=== PATIENT | female | born 1995 | race Caucasian/White ===

== ENCOUNTER 2018-10-09 23:52 | Emergency (ER) | payer OTHER, SELFPAY ==
[2018-10-09 23:57] VITALS: BP 141/87; PULSE 89; RESP 18; TEMP 36.7; O2SAT 97
--- NOTE | 2018-10-10 00:44 | ED.GENADUL_ITS ---
Discharge Plan Disposition Patient Disposition: HOME Condition: Stable Discharge Details Chief Complaint: RespSymp Clinical Impression: URI (upper respiratory infection), Bronchitis Primary Care Provider: Chante Cano ED Provider: Radha Jang Home Meds and New Rx's Prescriptions: New prednisone 50 mg tablet 50 mg PO DAILY 5 Days Qty: 5 RF: 0 doxycycline hyclate 100 mg tablet 100 mg PO BID 5 Days Qty: 10 RF: 0 Continued norgestimate-ethinyl estradiol [TriNessa (28)] 1 EACH tablet 1 ea PO DAILY RF: 0 acetaminophen [Mapap Extra Strength] 500 MG tablet 500 mg PO PRN PRNRF: 0 ibuprofen 600 MG tablet 600 mg PO Q6H PRN (Reason: Pain) Qty: 15 RF: 0 bupropion HCl [Wellbutrin] 100 MG tablet 100 mg PO DAILY RF: 0 Discharge Instructions Instructions: Upper Respiratory Infection (ED), Acute Bronchitis (ED) Additional Instructions: Drink plenty of fluids and get plenty of rest. Take Tylenol and Motrin as needed and directed for pain. Use [id number] cough and cold medication to help with cough, nasal congestion. If you have continued wheezing and coughing, start the steroids. If your symptoms do not improve or worsen over the next 2 days after steroids, start the antibiotics. Follow-up with primary care doctor in 1 week for reevaluation as needed. Return immediately to the emergency department any worsening or concerning sym ptoms Stand Alone Forms: Work Release Discharge Data Discharge Physician: Radha Jang Medical Decision Making 23-year-old female who presents with cough with green sputum, chest congestion, intermittent shortness of breath and rib pain with coughing for the past 3 days. Denies known fever, sore throat, ear pain. Vitals within normal limits. Afebrile. Patient appears nontoxic and in no acute distress. She is speaking in full sentences. Minimal sinus tenderness but otherwise normal ENT exam. Lungs clear to auscultation. No submandibular swelling or lymphadenopathy. Differential diagnosis includes URI, viral syndrome, bronchitis, sinusitis. Doubt influenza or pneumonia, has no fevers, normal vital signs, and no complaints of body aches, chills or general fatigue. Patient states she did receive the flu shot this year. She is declining chest x-ray. She is on control, last menstrual period last month and denies chance of . Patient instructed to drink plenty of fluids, plenty of rest, symptomatic treatment with cough and cold medication. She states she had been wheezing but there is no wheezing on my exam. We will send home with a prescription for steroids for persistent cough and wheezing. She was offered an inhaler but declines. Will also send home with a prescription for antibiotics if her symptoms do not improve or worsen over the next few days. She was instructed on the concern for antibiotic resistance and she is encouraged to use symptomatic treatment and steroids first to see if her symptoms improve before starting the antibiotics. She requests a work note. She is instructed to follow-up with primary care doctor for reevaluation and to return here anytime if worse per HPI General Mode of arrival: ambulatory . Date/Time Provider Initiated Documentation: 10/10/18 00:43 . Limitations to Documentation: no limitations . Information obtained by: patient . HPI Narrative: Patient is a 23-year-old female presents with complaint of cough with green sputum, occasional wheezing, chest and rib pain with coughing for the past 3 days. Patient denies any known fever, sore throat, ear pain, vomiting or diarrhea. She states she did receive the flu shot this year. 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 Related Data Home Medications Medication Instructions Recorded Confirmed norgestimate-ethinyl estradiol 1 ea PO DAILY 12/22/13 10/10/18 [TriNessa (28)] acetaminophen [Mapap Extra 500 mg PO PRN PRN 09/26/16 10/10/18 Strength] ibuprofen 600 mg PO Q6H PRN #15 tablet 09/26/16 10/10/18 bupropion HCl [Wellbutrin] 100 mg PO DAILY 02/09/18 10/10/18 doxycycline hyclate 100 mg PO BID 5 Days #10 tab 10/10/18 prednisone 50 mg PO DAILY 5 Days #5 tab 10/10/18 Previous Rx's Medication Instructions Recorded ibuprofen 600 mg PO Q6H PRN #15 tablet 09/26/16 doxycycline hyclate 100 mg PO BID 5 Days #10 tab 10/10/18 prednisone 50 mg PO DAILY 5 Days #5 tab 10/10/18 Allergies Allergy/AdvReac Type Severity Reaction Status Date / Time No Known Allergies Allergy Unverified 02/12/18 15:02 General Stated Complaint: RespSymp MILLICENT: 4 Review of Systems Review of Systems All systems reviewed & are unremarkable except as noted in HPI and below Constitutional Reports as per HPI, Denies chills and Denies fever(s) Eyes Denies blurry vision ENT Denies dizziness, Denies sore throat and Denies throat swelling Cardiovascular Denies chest pain and Reports dyspnea Respiratory Reports cough and Reports dyspnea Gastrointestinal Denies abdominal pain, Denies diarrhea and Denies vomiting Genitourinary Denies hematuria and Denies dysuria Musculoskeletal Denies back pain and Denies numbness Integumentary/Breasts Denies lesions and Denies rash Neurologic Denies dizziness, Denies focal weakness and Denies numbness Allergic/Immunologic Denies throat swelling PFSH Medical History No significant past medical history (Acute) Surgical History No significant past surgical history (Acute) Social History Smoking and Tabacco status: Never alcohol intake: current alcohol intake frequency: a few times a month substance use type: does not use Exam Const General: cooperative, healthy appearing and no acute distress HENMT Head: normal to inspection Ears: hearing grossly normal bilaterally and TM's normal bilaterally General nose exam: external nose normal Face and sinus: normal facial exam and sinus tenderness maxillary (mild bilateral) Mouth: oral mucosae normal Teeth and gingiva: dentition normal Throat: posterior oropharynx normal Eyes General: appearance normal, both eyes and all related structures Pupils: PERRL EOM: EOM intact bilaterally Neck Neck: normal visual inspection and No submandibular swelling Lymphatic: no lymphadenopathy noted Chest Chest: normal inspection of the chest and no tenderness Resp Effort & Inspection: normal respiratory effort and able to speak in complete sentences Auscultation: clear to auscultation bilaterally Cardio Rate: regular rate Rhythm: regular rhythm GI Inspection: normal to inspection Palpation: soft, not firm, not rigid and nontender Auscultation: normal bowel sounds Skin General skin exam: no rashes or lesions noted Neuro General: alert, awake, oriented x3 and no meningeal signs Cognition: normal cognition Speech: speech normal Gait: normal gait Motor: muscle tone normal throughout Sensory Exam: no sensory deficits noted Extrem General: normal to inspection, full ROM, normal capillary refill and no edema Psych Appearance: grossly normal Mental Status: mental status grossly normal Speech and Movement: speech and movement normal Affect: normal affect Course Vital Signs Temperature 98.1 F 10/09/18 23:57 Pulse 89 10/09/18 23:57 Respiratory Rate 18 10/09/18 23:57 Blood Pressure 141/87 H 10/09/18 23:57 Pulse Oximetry 97 10/09/18 23:57 Temperature 98.1 F 10/09/18 23:57 Temperature Source Temporal Artery Scan 10/09/18 23:57 Pulse 89 10/09/18 23:57 Respiratory Rate 18 10/09/18 23:57 Respiratory Effort Non-Labored 10/10/18 00:19 Respiratory Depth Normal 10/10/18 00:19 Blood Pressure 141/87 H 10/09/18 23:57 Pulse Oximetry 97 10/09/18 23:57 Oxygen Delivery Method Room Air 10/09/18 23:57 Oxygen Flow Rate 0 10/09/18 23:57 Pain Level 9 10/09/18 23:57 Comment 10/09/18 23:57
== END 2018-10-10 00:50 | disposition home or self-care (01) ==
LOC: ER 10-10 00:53
PROVIDERS: Emergency Provider Physician Assistant; PCP Physician Assistant Medical
DX: J06.9 Acute upper respiratory infection, unspecified (principal); J20.9 Acute bronchitis, unspecified
CPT/HCPCS: 99283

== ENCOUNTER 2019-04-27 19:58 | Emergency (ER) | payer OTHER, BC, SELFPAY ==
[2019-04-27 20:07] VITALS: BP 128/89; PULSE 89; RESP 16; TEMP 36.4; O2SAT 98
--- NOTE | 2019-04-27 20:16 | W.ED.GENAD ---
Discharge Plan Disposition Patient Disposition: HOME Condition: Good Discharge Details Chief Complaint: Nk/Back Pain Clinical Impression: Lumbago Primary Care Provider: Chante Cano ED Provider: Alban Hernandez Home Meds and New Rx's Prescriptions: New lidocaine [Lidoderm] 1 PATCH patch 1 patch Topical Q24H Qty: 4 RF: 0 Continued norgestimate-ethinyl estradiol [TriNessa (28)] 1 EACH tablet 1 ea PO DAILY RF: 0 acetaminophen [Mapap Extra Strength] 500 MG tablet 500 mg PO PRN PRNRF: 0 ibuprofen 600 MG tablet 600 mg PO Q6H PRN (Reason: Pain) Qty: 15 RF: 0 bupropion HCl [Wellbutrin] 100 MG tablet 100 mg PO DAILY RF: 0 Discharge Instructions Instructions: Low Back Strain (ED) Additional Instructions: At this time you have notably pulled a muscle in your back. There is no evidence clinically of spinal cord compression. Please use Lidoderm patches as directed, please take 1000 mg of Tylenol every 6 hours and 800 mg of ibuprofen every 6 hours. Please avoid any lifting greater than 5 to 10 pounds for the next 2 weeks. Make sure to use a heating pad as often as possible. If you notice any worsening of your symptoms, or any new symptoms such as vomiting, diarrhea, fever, chills, shortness of breath, chest pain, numbness, tingling in your groin, bowel or bladder incontinence, weakness, or fainting , please return immediately to the emergency department for reevaluation. Please follow up with your primary care provider as soon as possible for reassessment and reevaluation. As always, it was a pleasure participating in your medical care today. Stand Alone Forms: Work Release Referrals: Chante Cano PA [Primary Care Provider] - Medical Decision Making This is a 23-year-old female who presents today for evaluation of right lower back pain. 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 Exam demonstrates no clinical evidence of cauda equina syndrome, she is got mild paraspinal tenderness in the lower lumbar region on the right. Normal sensation, normal rectal tone, no bowel or bladder incontinence, normal strength and reflexes. Signs and symptoms are clinically consistent with musculoskeletal strain. Patient does not want any muscle relaxants. Will give work note, recommend heating pad, NSAIDs, Lidoderm patch. Discussed red flags which to return I have extensively reviewed the treatment plan and discharge instructions with the patient. I have addressed all patient concerns at this time. The patient was made aware of what symptoms to monitor for that would warrant a return to the emergency department. Discussed the plan with the patient, they demonstrate verbal understanding and agreement with our assessment and plan at this time. HPI General Date/Time Provider Initiated Documentation: 04/27/19 20:04. HPI Narrative: This is a pleasant 23-year-old male who presents today for evaluation of right lower back pain. She states that she was working at the [facility] facility when she twisted while lifting a patient had some mild to moderate pain in her right lower back. She admits to some burning sensation in that area, she denies any numbness tingling or weakness down the leg. She denies any bowel or bladder incontinence, saddle anesthesia, or other complaints. She has not taken any NSAIDs yet. She denies any fever, chills, IV or illicit drug use, recent falls or trauma. She has no other complaints at this time. She denies any weakness in the lower extremities. Related Data Home Medications Medication Instructions Recorded Confirmed norgestimate-ethinyl estradiol 1 ea PO DAILY 12/22/13 04/27/19 [TriNessa (28)] acetaminophen [Mapap Extra 500 mg PO PRN PRN 09/26/16 04/27/19 Strength] ibuprofen 600 mg PO Q6H PRN #15 tablet 09/26/16 04/27/19 bupropion HCl [Wellbutrin] 100 mg PO DAILY 02/09/18 04/27/19 lidocaine [Lidoderm] 1 patch TOPICAL Q24H #4 patch 04/27/19 Previous Rx's Medication Instructions Recorded ibuprofen 600 mg PO Q6H PRN #15 tablet 09/26/16 lidocaine [Lidoderm] 1 patch TOPICAL Q24H #4 patch 04/27/19 Allergies Allergy/AdvReac Type Severity Reaction Status Date / Time No Known Allergies Allergy Unverified 04/27/19 20:20 General Stated Complaint: Nk/Back Pain MILLICENT: 3 Review of Systems Review of Systems All systems reviewed & are unremarkable except as noted in HPI and below PFSH Social History (Reviewed 10/10/18 @ 02:33 by HOWARD Navarrete Smoking/Tobacco Use Status: Never Alcohol Intake: current Alcohol Intake frequency: a few times a month Drug use: Never Substance use type: does not use Do you feel safe in your relationship?: Yes Exam Narrative Exam Narrative: 1.Const: Well-nourished, Well-developed, appearing stated age 2.Eyes: PERRL, no conjunctival injection, and symmetrical lids. 3.ENT: Atraumatic external nose and ears. Moist MM. Neck: Symmetric, trachea midline, No thyromegaly. 4.CVS: +S1/S2, No murmurs or gallops. Peripheral pulses 2+ and equal in all extremities. Brisk capillary refill in all extremities. 5.RESP: Unlabored respiratory effort. Clear to auscultation bilaterally. No wheezes rales or rhonchi 6.GI: Soft, Nontender/Nondistended, No hepatosplenomegaly. No guarding or rebound. 7.MSK: Normocephalic/Atraumatic, Extremities w/o deformity or ttp No cyanosis or clubbing, Normal movement of all extremities. No midline tenderness to palpation over the CTLS spine. Normal ROM in flexion, extension, side bend, and rotation. Patient has +5 out of 5 strength in the lower extremities in dorsiflexion and plantarflexion, knee flexion and extension, hip flexion and extension. There is +2 over 2 dorsalis pedis pulses bilaterally. There is normal sensation to the skin with light touch at the foot, knee, and hip. Normal saddle sensation. Good sensation over the deep sural nerve area bilaterally. Rectal exam demonstrates good rectal tone and perirectal sensation. Reflexes are +2 over 4 in the patellar reflex bilaterally. +5 out of 5 strength in the medial, ulnar, radial nerve distribution bilaterally in the hands as well as intact light touch sensation to these dermatomes on the hands. Minimal right paraspinal tenderness over L4 and L5. Negative straight leg raise 8.Skin: Warm, Dry. No rashes or lesions. 9.Neuro: lead generation representative II-XII grossly intact. Sensation grossly intact, no focal neurologic deficits. 10.Psych: (AAO) x3. Appropriate mood and affect Course Vital Signs Temperature 36.4 C L 04/27/19 20:07 Pulse 89 04/27/19 20:07 Respiratory Rate 16 04/27/19 20:07 Blood Pressure 128/89 04/27/19 20:07 Pulse Oximetry 98 04/27/19 20:07 Temperature 36.4 C L 04/27/19 20:07 Temperature Source Skin 04/27/19 20:07 Pulse 89 04/27/19 20:07 Respiratory Rate 16 04/27/19 20:07 Blood Pressure 128/89 04/27/19 20:07 Blood Pressure Position Sitting 04/27/19 20:07 Pulse Oximetry 98 04/27/19 20:07 Oxygen Delivery Method Room Air 04/27/19 20:07 Oxygen Flow Rate 0 04/27/19 20:07 Pain Level 9 04/27/19 20:07
[2019-04-27] MEDS: Lidocaine 5% Patch 1 PATCH TP (20:23)
== END 2019-04-27 21:22 | disposition home or self-care (01) ==
PROVIDERS: Emergency Provider Student in an Organized Health Care Education/Training Program; PCP Physician Assistant Medical
DX: S39.012A Strain of muscle, fascia and tendon of lower back, initial encounter (principal); X50.9XXA Other and unspecified overexertion or strenuous movements or postures, initial encounter; Y99.0 Civilian activity done for income or pay
CPT/HCPCS: 99282

== ENCOUNTER 2019-07-03 15:52 | Outpatient (REF) | payer BC, SELFPAY ==
--- NOTE | 2019-07-03 13:00 | PAPFT_PTH ---
PATIENT: Jayne Judge LOC: [facility] U#:[id number] AGE/SX: 24/F ROOM: RE07/03/[address]: Chante Cano : 1995 BED: DIS: 07/03/2019 SPEC #: [id number] RECD: 07/06/19 12:08 STATUS: PEDRO RENetta #: [id number] JAYESH: 07/03/19 13:[address]: Chante Cano DEPT: [facility] Cytology RECD BY: Pebbles Humphreys Tissues: 1 - CX/ENDOCX FOR PAP SMEARS Procedures: PAP THIN PREP/UVM Screening Comments: [id number]
[2019-07-06 12:30] LABS: Chlamydia Result Negative (Negative); GC Result Negative (Negative)
== END 2019-07-03 16:12 ==
LOC: NCHCN 15:52
PROVIDERS: PCP Physician Assistant Medical; Visit Provider Physician Assistant Medical
DX: Z00.00 Encounter for general adult medical examination without abnormal findings (principal); Z11.3 Encounter for screening for infections with a predominantly sexual mode of transmission; Z12.4 Encounter for screening for malignant neoplasm of cervix
CPT/HCPCS: 87491; 87591; 88142

== ENCOUNTER 2020-02-04 13:52 | Outpatient (REF) | payer BC, SELFPAY ==
[2020-02-05 02:15] LABS: COVID-19 RT-PCR UVMMC Result Negative (Negative)
== END 2020-02-04 14:12 ==
LOC: NCHCN 13:52
PROVIDERS: PCP Physician Assistant Medical
DX: Z20.828 Contact with and (suspected) exposure to other viral communicable diseases (principal)
CPT/HCPCS: U0003

== ENCOUNTER 2020-03-03 17:47 | Emergency (ER) | payer BC, SELFPAY ==
[2020-03-03] VITALS (10 sets, daily range): BP systolic 109–139; BP diastolic 68–83; PULSE 80–89; RESP 15–16; TEMP 36.7–37.1; O2SAT 100
--- NOTE | 2020-03-03 18:07 | ED.GENADUL_ITS ---
Discharge Plan Disposition Patient Disposition: HOME Condition: Stable Discharge Details Chief Complaint: Headache Clinical Impression: Headache, migraine Primary Care Provider: Chante Cano ED Provider: Naveed Velazquez Home Meds and New Rx's Prescriptions: Continued lidocaine [Lidoderm] 1 PATCH patch 1 patch Topical Q24H Qty: 4 RF: 0 acetaminophen [Mapap Extra Strength] 500 MG tablet 1,000 mg PO PRN PRNRF: 0 ibuprofen 600 MG tablet 600 mg PO Q6H PRN (Reason: Pain) Qty: 15 RF: 0 bupropion HCl [Wellbutrin] 100 MG tablet 100 mg PO DAILY RF: 0 Discharge Instructions Instructions: Migraine Headache (ED) Additional Instructions: Home to rest and please sleep in a dark, quiet room. Continue to take liberal amounts of fluids so that you maintain hydration. As we discussed, you received a long-acting steroid which should continue to montes ve anti-inflammatory effects. Continue your regular medications. Return if you develop a fever, worsening headache, or any other acute concerns Medical Decision Making 24-year-old female with a history of previous migraine headaches. Now day 3+ of persistent headache for which she was seen at [facility] yesterday and reports a unremarkable CT scan of the head. Now with persistent headache, photophobia, nausea. Her neurologic exam is unremarkable. Her vital signs are within normal limits. Most consistent with migraine type cephalgia. IV access established, patient given fluid bolus and parenteral medications. Following medications, the patient was able to rest quietly. She felt subjectively better. She has less photophobia and is well-appearing on repeat exam. Stable and improving, consistent with migraine headache. Will discharge to home. HPI General Mode of arrival: ambulatory . Date/Time Provider Initiated Documentation: 03/03/20 17:49 . Limitations to Documentation: no limitations . Information obtained by: patient . History of Present Illness 24 year old F presents to the emergency department with the chief complaint of Headache for 3+ days, described as moderate and similar to prior episodes, Quality is described as dull and constant, and is localized to the head. Patient reports no radiation. Patient started experiencing this day(s) and it has been constant. Other factors that worsen symptoms (Bright lights) . Patient notes headaches and loss of appetite. Patient did receive the following treatments prior to arrival, other (tylenol) Related Data Home Medications Medication Instructions Recorded Confirmed acetaminophen [Mapap Extra 1,000 mg PO PRN PRN 09/26/16 03/03/20 Strength] ibuprofen 600 mg PO Q6H PRN #15 tablet 09/26/16 03/03/20 bupropion HCl [Wellbutrin] 100 mg PO DAILY 02/09/18 03/03/20 lidocaine [Lidoderm] 1 patch TOPICAL Q24H #4 patch 04/27/19 03/03/20 Previous Rx's Medication Instructions Recorded ibuprofen 600 mg PO Q6H PRN #15 tablet 09/26/16 lidocaine [Lidoderm] 1 patch TOPICAL Q24H #4 patch 04/27/19 Allergies Allergy/AdvReac Type Severity Reaction Status Date / Time No Known Allergies Allergy Unverified 03/03/20 17:59 General Stated Complaint: Headache MILLICENT: 3 Review of Systems Narrative: 6 systems reviewed and otherwise negative. No fall or trauma. She reports being seen at [facility] last night, unremarkable CT scan performed but minimal relief of headache. [facility] Medical History No significant past medical history (Acute) Social History Smoking/Tobacco Use Status: Never Alcohol Intake: current Alcohol Intake frequency: a few times a month Drug use: Never Substance use type: does not use Do you feel safe at home: Yes Do you feel safe in your relationship?: Yes Exam Narrative Exam Narrative: GEN: awake, alert, oriented 3. Pleasant, well groomed, interactive, lying in a darkened room. HEAD: Normocephalic, atraumatic ENT: Mucous membranes moist, oropharynx unremarkable, External ear exam unremarkable EYES: PERRL, EOMI NECK: Full ROM, no REESE, no menigismus CHEST/RESP: Nontender, clear to auscultation bilateral, no wheeze/rhonchi/rales CARDIOVASCULAR: RRR, no murmur, rub james. 2+ Rad pulse bilateral ABDOMEN: Soft, nontender, no mass. +Bowel sounds EXT: Full ROM, no edema, no rash Neuro: Grossly normal neurologic exam, conversant, interactive. Psych: Speech fluent, thoughts congruent, affect normal Course Vital Signs Vital signs: Vital Signs Temperature 36.7 C 03/03/20 17:53 Pulse 82 03/03/20 17:53 Respiratory Rate 15 03/03/20 17:53 Blood Pressure 139/78 03/03/20 17:53 Pulse Oximetry 100 03/03/20 17:53 Temperature 36.7 C 03/03/20 17:53 Temperature Source Temporal Artery Scan 03/03/20 17:53 Pulse 82 03/03/20 17:53 Respiratory Rate 15 03/03/20 17:53 Respiratory Effort Non-Labored 03/03/20 17:58 Blood Pressure 139/78 03/03/20 17:53 Blood Pressure Position Supine 03/03/20 17:53 Pulse Oximetry 100 03/03/20 17:53 Oxygen Delivery Method Room Air 03/03/20 17:53 Oxygen Flow Rate 0 03/03/20 17:53 Pain Level 03/03/20 17:53
[2020-03-03] MEDS: Ondansetron 4 MG/2 ML VIAL IVP (18:12)
[2020-03-03] MEDS: Normal Saline 1,000 ML 1000 ML IV (18:12)
[2020-03-03] MEDS: Dexamethasone 10 MG/ML VIAL IVP (18:13)
[2020-03-03] MEDS: Ketorolac 30 MG/ML VIAL IVP (18:13)
[2020-03-03] MEDS: diphenhydrAMINE 50 MG/ML VIAL IVP (18:13)
[2020-03-03] MEDS: Normal Saline Flush 10 ML SYR IVP (18:13)
== END 2020-03-03 19:38 | disposition home or self-care (01) ==
PROVIDERS: Emergency Provider Emergency Medicine; PCP Physician Assistant Medical
DX: G43.009 Migraine without aura, not intractable, without status migrainosus (principal); R11.0 Nausea; H53.149 Visual discomfort, unspecified
CPT/HCPCS: 96361; 96374; 96375; 99284; J1100; J1200; J1885; J2405

== ENCOUNTER 2021-03-13 09:32 | Outpatient (REF) | payer OTHER, SELFPAY ==
[2021-03-15 15:15] LABS: Chlamydia Result Negative (Negative); GC Result Negative (Negative)
== END 2021-03-13 09:33 | disposition home or self-care (01) ==
LOC: NCHCN 09:32
PROVIDERS: PCP Physician Assistant Medical; Visit Provider Physician Assistant Medical
DX: N92.5 Other specified irregular menstruation (principal)
CPT/HCPCS: 87491; 87591; 87480; 87510; 87660

== ENCOUNTER 2021-06-07 14:46 | Outpatient (REF) | payer OTHER, SELFPAY ==
[2021-06-08 14:46] LABS: Chlamydia Result Negative (Negative); GC Result Negative (Negative)
== END 2021-06-07 14:47 | disposition home or self-care (01) ==
LOC: LBN 14:46
PROVIDERS: PCP Physician Assistant Medical; Visit Provider Obstetrics & Gynecology
DX: Z11.3 Encounter for screening for infections with a predominantly sexual mode of transmission (principal)
CPT/HCPCS: 87491; 87591

== ENCOUNTER 2021-10-20 13:00 | Outpatient (REF) | payer BC, SELFPAY ==
[2021-10-20 20:24] LABS: Abs Immature Grans 0.02 10^3/uL (0.0-0.06); Absolute Basophil Count 0.09 10^3/uL (0.0-0.2); Absolute Eosinophil Count 0.23 10^3/uL (0.0-0.7); Absolute Lymphocyte Count 1.98 10^3/uL (1.2-3.4); Absolute Monocyte Count 0.61 10^3/uL (0.1-0.8); Absolute Neutrophil Count 4.98 10^3/uL (1.2-6.7); Basophils % 1.1; Eosinophils % 2.9; HCT 41.1 % (36.0-46.0); HGB 14.2 g/dL (11.2-15.7); Immature Grans % 0.3; MCH 30.9 pg (27.0-33.0); MCHC 34.5 % (32.0-36.0); MCV 89.3 fL (80-95); MPV 9.3 fL (8.0-11.0); Monocytes % 7.7; Nucleated RBC 0 %; Platelet Count 397 10^3/uL (130-400); RDW 12.2 % (11.7-14.6); RDW-SD 39.8 fL; WBC 7.91 10^3/uL (4.4-10.8)
[2021-10-20 20:34] LABS: ALT 23 U/L (14-59); AST 15 U/L (15-37); Albumin 4.3 g/dL (3.4-5.0); Alkaline Phosphatase 86 U/L (46-116); Bilirubin, Direct 0.1 mg/dL (0.0-0.2); Bilirubin, Total 0.3 mg/dL (0.2-1.0); Total Protein 7.7 g/dL (6.4-8.2)
[2021-10-23 14:30] LABS: Hepatitis C Ab w Rflx HCV PCR Negative (Negative)
== END 2021-10-20 13:01 | disposition home or self-care (01) ==
LOC: NCHCN 13:00
PROVIDERS: PCP Physician Assistant Medical; Visit Provider Physician Assistant Medical
DX: R10.9 Unspecified abdominal pain (principal); Z11.59 Encounter for screening for other viral diseases
CPT/HCPCS: 80076; 86803; 85025

== ENCOUNTER 2022-03-13 14:51 | Emergency (ER) | payer BC, SELFPAY ==
[2022-03-13 14:59] VITALS: BP 137/90; PULSE 92; RESP 18; TEMP 37.3; O2SAT 99
--- NOTE | 2022-03-13 15:30 | DI.CT_ITS ---
Exam(s) CT RENAL COLIC WO EXAM: CT RENAL COLIC WO CLINICAL HISTORY: right flank pain. TECHNIQUE: Imaging Protocol: Axial computed tomography images with coronal and sagittal reformatted images were created and reviewed. COMPARISON: CT ABD PELVIS WITH CONTRAST from 02/05/2015 FINDINGS: ABDOMEN: Lung Bases: Normal where visualized. Liver: Normal density. No measurable mass. Gallbladder and biliary tract: No radiodense calculus or biliary ductal dilation. Pancreas: Normal density, no abnormal calcifications or inflammatory process. Spleen: Normal. Kidneys: Normal size, contour and axis.No radiodense stones or obstructive uropathy. No masses seen. Adrenal glands: No mass is seen. Lymph nodes: Within normal limits. Abdominal Aorta: Abdominal portion non-dilated. PELVIS: Bladder:Symmetric distention, no gross wall thickening. Bowel: No obstruction or bowel wall thickening. Appendix is unremarkable. Peritoneal cavity: No ascites, collection or mesenteric inflammatory response. No free air. Reproductive organs: There is an IUD in good position. There is a 6.2 x 6.7 cm cystic lesion posteri or to the uterus. The left ovary is visualized. This may represent a right ovarian cyst or other pe lvic cyst. Bones: Within normal limits. Soft Tissues: Within normal limits. IMPRESSION: 1. No evidence of nephrolithiasis or hydronephrosis. 2. 6.2 x 6.7 cm cystic lesion posterior to the uterus. The left ovary is visualized. This may repre sent a right ovarian cyst. Other pelvic cystic lesion such as endometriomas should be considered. A pelvic ultrasound may be obtained for further evaluation. 3. Results of this exam have been verbally communicated with provider. RADIATION DOSE DELIVERED: 939.34mGy.cm Total DLP DATA REPOSITORY: All CT scans at this facility are submitted to the National Radiology Data Registry (NRDR) Dose Index Registry (DIR) with the [employer] (A[employer]). RADIATION OPTIMIZATION: All CT scans at this facility use at least one of these dose optimization te chniques: automated exposure control; mA and/or kV adjustment per patient size (includes targeted exa ms where dose is matched to clinical indication); or iterative reconstruction.
[2022-03-13] MEDS: Normal Saline 1,000 ML 1000 ML IV (15:33)
[2022-03-13] MEDS: Ondansetron 4 MG/2 ML VIAL IVP (15:33)
[2022-03-13 15:35] LABS: Abs Immature Grans 0.02 10^3/uL (0.0-0.06); Absolute Basophil Count 0.05 10^3/uL (0.0-0.2); Absolute Eosinophil Count 0.13 10^3/uL (0.0-0.7); Absolute Lymphocyte Count 1.16 10^3/uL (1.2-3.4); Absolute Monocyte Count 0.55 10^3/uL (0.1-0.8); Absolute Neutrophil Count 6.56 10^3/uL (1.2-6.7); Basophils % 0.6; Eosinophils % 1.5; HCT 39.2 % (36.0-46.0); Immature Grans % 0.2; Lymphocytes % 13.7; MCH 32.3 pg (27.0-33.0); MCHC 35.7 % (32.0-36.0); MCV 90 fL (80-95); MPV 8.8 fL (8.0-11.0); Monocytes % 6.5; Neutrophils % 77.5; Platelet Count 333 10^3/uL (130-400); RBC 4.34 10^6/uL (3.93-5.22); RDW-SD 39.8 fL; WBC 8.47 10^3/uL (4.4-10.8)
[2022-03-13 15:37] LABS: Bilirubin Negative (Negative); Blood Negative (Negative); Clarity Clear (Clear); Glucose Negative (Negative); Ketones Negative (Negative); Leukocyte Esterase Negative (Negative); Nitrite Negative (Negative); Urobilinogen 0.2 EU/dL (Up TO 0.2)
[2022-03-13] MEDS: Ketorolac 15 MG/ML VIAL IVP (15:47)
[2022-03-13 15:50] LABS: ALT 18 U/L (14-59); AST 13 U/L (15-37); Albumin 4.2 g/dL (3.4-5.0); Alkaline Phosphatase 70 U/L (46-116); Anion Gap 8.4 mmol/L (3-11); BUN 10 mg/dL (7-18); Bilirubin, Total 0.3 mg/dL (0.2-1.0); CO2 25.6 mmol/L (21.0-32.0); CREATININE 0.9 mg/dL (0.55-1.02); Calcium 9.1 mg/dL (8.5-10.1); Chloride 105 mmol/L (98-107); Glucose 103 mg/dL (74-106); Lipase 140 U/L (73-393); Potassium 3.7 mmol/L (3.5-5.1); Sodium 139 mmol/L (136-145); Total Protein 7.6 g/dL (6.4-8.2)
--- NOTE | 2022-03-13 16:06 | W.ED.GENAD ---
Discharge Plan Disposition Patient Disposition: HOME Condition: Stable Discharge Details Clinical Impression: Abdominal pain, right lower quadrant, Complex cyst of right ovary Primary Care Provider: Chante Cano ED Provider: Ramos Garcia Home Meds and New Rx's Prescriptions: Continued temazepam 15 mg capsule 15 mg PO QHS omeprazole 20 mg capsule,delayed release(DR/EC) 20 mg PO DAILY lidocaine [Lidoderm] 1 PATCH patch 1 patch Topical Q24H Qty: 4 0RF diphenhydramine HCl [Benadryl] 25 mg Capsule 25 mg PO QHS PRN esomeprazole magnesium [Nexium 24HR] 20 mg tablet,delayed release (DR/EC) 20 mg PO DAILY Label Comments: TAKE 1 TABLET BY MOUTH ONCE DAILY acetaminophen [Mapap Extra Strength] 500 MG tablet 1,000 mg PO PRN PRN ibuprofen 600 MG tablet 600 mg PO Q6H PRN (Reason: Pain) Qty: 15 0RF bupropion HCl [Wellbutrin] 100 MG tablet 100 mg PO DAILY Discharge Instructions Instructions: Ovarian Cyst (ED) Additional Instructions: call [facility] tomorrow for an appointment If you have severe worsening pain or persistent vomit return to the emergency department Medical Decision Making 26 yo female who denies prior abdominal surgeries comes in with sudden onset right lower abdomen pain that radiates to the back starting about 2 hours prior to arrival. She states the pain started when she tried to urinate. Denies fevers, chills, chest pain, sob, back pain. She arrives stable, localizes the pain to the right lower abdomen. Has no cva tenderness. On exam she is tender to the rlq, no rebound tenderness or upper abdomen tenderness. Concern for appendicitis vs kidney stone and less likely control room helper pathology such as ovarian cyst. Will obtain cbc, cmp, lipase and ct renal colic to further evaluate ct shows possible 6cm left ovarian cyst, she feels improved. Will obtain pelvic u/s to further evaluate u/s tech advised good flow into the ovary, appears to be 6cm complex cyst in the right ovary. Patient still feels well has no pain now. Discussed with Dr. Cartwright from obgyn who will f/u with the pt. Pt understands plan and will return for any worsening symptoms Differential Diagnosis Differential Diagnosis: kidney stone, appendicitis, ovarian cyst Imaging Data Radiologic Study: Attestation: I personally reviewed and interpreted this imaging study as follows: Imaging: CT Scan Radiologist's impression: IMPRESSION: 1. No evidence of nephrolithiasis or hydronephrosis. 2. 6.2 x 6.7 cm cystic lesion posterior to the uterus.? The left ovary is visualized.? This may represent a right ovarian cyst.? Other pelvic cystic lesion such as endometriomas should be considered.? A pelvic ultrasound may be obtained for further evaluation. 3. Results of this exam have been verbally communicated with provider. Radiologic Study #2: Attestation: I personally reviewed and interpreted this imaging study as follows: Imaging: Ultrasound My impression: normal flow, 6cm ovarian cyst Lab Data Lab results reviewed: Yes I reviewed the patient's lab results. HPI General Mode of arrival: ambulatory. Date/Time Provider Initiated Documentation: 03/13/22 15:12. Limitations to Documentation: no limitations. Information obtained by: patient. History of Present Illness 26 year old F presents to the emergency department with the chief complaint of right lower abdomen pain, described as moderate, and is localized to the abdomen. Patient reports radiation to back. Patient started experiencing this hour(s) (2) and it has been constant. No relieving factors improve symptom(s), No exacerbating factors reported . Patient notes other (hurts to urinate). Patient did receive the following treatments prior to arrival, none Related Data Home Medications Medication Instructions Recorded Confirmed acetaminophen 500 mg tablet (Mapap 1,000 mg PO PRN PRN 09/26/16 07/06/21 Extra Strength) ibuprofen 600 mg tablet 600 mg PO Q6H PRN Pain #15 tabs 09/26/16 07/06/21 bupropion HCl 100 mg tablet 100 mg PO DAILY 02/09/18 03/13/22 (Wellbutrin) lidocaine 5 % topical patch 1 patch topical Q24H #4 patches 04/27/19 03/13/22 (Lidoderm) omeprazole 20 mg capsule,delayed 20 mg PO DAILY 05/02/21 03/13/22 release temazepam 15 mg capsule 15 mg PO QHS 05/02/21 03/13/22 diphenhydramine HCl 25 mg capsule 25 mg PO QHS PRN 03/13/22 03/13/22 (Benadryl) esomeprazole magnesium 20 mg 20 mg PO DAILY 03/13/22 03/13/22 tablet,delayed release (Nexium 24HR) Previous Rx's Medication Instructions Recorded ibuprofen 600 mg tablet 600 mg PO Q6H PRN Pain #15 tabs 09/26/16 lidocaine 5 % topical patch 1 patch topical Q24H #4 patches 04/27/19 (Lidoderm) Allergies Allergy/AdvReac Type Severity Reaction Status Date / Time No Known Allergies Allergy Unverified 03/13/22 15:02 General Stated Complaint: Abd Prob MILLICENT: 3 Review of Systems All systems reviewed & are unremarkable except as noted in HPI and below Constitutional Constitutional: Denies chills, Denies fever(s) and Denies weakness Eyes Eyes: Denies loss of vision ENT Ears, Nose, Mouth, and Throat: Denies change in voice Cardiovascular Cardiovascular: Denies chest pain and Denies dyspnea Respiratory Respiratory: Denies cough and Denies dyspnea Gastrointestinal Gastrointestinal: Denies vomiting Musculoskeletal Musculoskeletal: Denies joint swelling Integumentary/Breasts Skin/Breast: Denies rash Neurologic Neurologic: Denies loss of vision and Denies weakness PFSH All Active Problems (Updated 03/13/22 @ 18:42 by Ramos Garcia MD) Abdominal pain, right lower quadrant (Acute) Complex cyst of right ovary (Acute) Contraception (Acute) Nausea & vomiting (Acute) Medical History (Updated 03/13/22 @ 18:42 by Ramos Garcia MD) No significant past medical history Surgical History No significant past surgical history Social History Smoking/Tobacco Use Status: Never Smoking risk assessment performed?: Yes Alcohol Intake: former Drug use: Never Substance use type: does not use Do you feel safe at home: Yes Do you feel safe in your relationship?: Yes Exam Const General: no acute distress Orientation: alert HENMT Head: normal to inspection Ears: external ears normal General nose exam: external nose normal Mouth: moist mucous membranes Eyes General: appearance normal, both eyes and all related structures Neck Neck: normal visual inspection Resp Effort & Inspection: normal respiratory effort and able to speak in complete sentences Cardio Rate: regular rate GI Palpation: soft and tender Back/Spine/Pelvis Back: no CVA tenderness Skin General skin exam: no rashes or lesions noted Neuro General: patient alert and patient oriented x3 Extrem General: normal to inspection Psych Mental Status: mental status grossly normal Course Vital Signs Vital signs: Vital Signs Temperature 37.3 C 03/13/22 14:59 Pulse 92 H 03/13/22 14:59 Respiratory Rate 18 03/13/22 14:59 Blood Pressure 137/90 03/13/22 14:59 Pulse Oximetry 99 03/13/22 14:59 Temperature 37.3 C 03/13/22 14:59 Temperature Source Temporal Artery Scan 03/13/22 14:59 Pulse 92 H 03/13/22 14:59 Respiratory Rate 18 03/13/22 14:59 Respiratory Effort Non-Labored 03/13/22 15:11 Blood Pressure 137/90 03/13/22 14:59 Blood Pressure Position Sitting 03/13/22 14:59 Pulse Oximetry 99 03/13/22 14:59 Oxygen Delivery Method Room Air 03/13/22 14:59 Oxygen Flow Rate 0 03/13/22 14:59 Pain Level 9 03/13/22 15:47 Lab/Test Results Lab/Test Results: Laboratory Tests Range/Units 03/13/22 03/13/22 03/13/22 15:08 15:30 15:30 WBC (4.4-10.8) 10^3/uL 8.47 RBC (3.93-5.22) 10^6/uL 4.34 Hgb (11.2-15.7) g/dL 14.0 Hct (36.0-46.0) % 39.2 MCV (80-95) fL 90 MCH (27.0-33.0) pg 32.3 MCHC (32.0-36.0) % 35.7 RDW (11.7-14.6) % 12.0 Plt Count (130-400) 10^3/uL 333 MPV (8.0-11.0) fL 8.8 Immature Gran % 0.2 Neutrophils % 77.5 Lymphocytes % 13.7 Monocytes % 6.5 Eosinophils % 1.5 Basophils % 0.6 Nucleated RBC % (0.0-0.3) % 0.0 Absolute Neutrophils (1.2-6.7) 10^3/uL 6.56 Absolute Lymphocytes (1.2-3.4) 10^3/uL 1.16 L Absolute Monocytes (0.1-0.8) 10^3/uL 0.55 Absolute Eosinophils (0.0-0.7) 10^3/uL 0.13 Absolute Basophils (0.0-0.2) 10^3/uL 0.05 Sodium (136-145) mmol/L 139 Potassium (3.5-5.1) mmol/L 3.7 Chloride (98-107) mmol/L 105 Carbon Dioxide (21.0-32.0) mmol/L 25.6 Anion Gap (3-11) mmol/L 8.4 BUN (7-18) mg/dL 10 Creatinine (0.55-1.02) mg/dL 0.9 Estimated GFR/1.73 m2 (mL/min/1.73m2) >= 60.00 Glucose (74-106) mg/dL 103 Calcium (8.5-10.1) mg/dL 9.1 Total Bilirubin (0.2-1.0) mg/dL 0.3 AST (15-37) U/L 13 L ALT (14-59) U/L 18 Alkaline Phosphatase (46-116) U/L 70 Total Protein (6.4-8.2) g/dL 7.6 Albumin (3.4-5.0) g/dL 4.2 Lipase (73-393) U/L 140 Urine Color (Yellow) Yellow Urine Clarity (Clear) Clear Urine pH (5-8) 6.0 Ur Specific [place] (1.005-1.025) 1.010 Urine Protein (Negative) mg/dL Negative Urine Ketones (Negative) mg/dL Negative Urine Blood (Negative) Negative Urine Nitrite (Negative) Negative Urine Bilirubin (Negative) Negative Urine Urobilinogen (Up TO 0.2) EU/dL 0.2 Ur Leukocyte Esterase (Negative) Negative Urine Glucose (Negative) mg/dL Negative POC- Test(urine) Negative
--- NOTE | 2022-03-13 16:36 | PDOC.ERCMPRO ---
- If Service Date Differs Date of service: 03/13/22 Time of Service: 16:36 Care Management Progress Note SBIRT SCREEN:NEGATIVE. Pt reports no substance use of mental health symptoms.
--- NOTE | 2022-03-13 17:30 | DI.US_ITS ---
Exam(s) US PELVIS TRANSVAGINAL EXAM: US PELVIS TRANSVAGINAL CLINICAL HISTORY: ct with 6cm possible right ovarian cyst, ?torsion. TECHNIQUE: Transabdominal and transvaginal pelvic ultrasound was performed using standard protocol. COMPARISON: US PELVIS RENAL ULTRASOUND from 08/24/[address] RENAL COLIC WO from 03/13/2022 FINDINGS: KIDNEYS: Kidneys are symmetric in size. No evidence of renal calculi. No evidence of hydronephrosis. No renal mass or cyst identified. UTERUS: Position: Anteverted. Size: 7.8 long by 3.3 AP by 4.5 transverse cm Endometrium: 0.9 cm. Normal for patient's menstrual status. There is an IUD in good position. Myometrium: Unremarkable. Cervix: Unremarkable. OVARIES: Right: 6.1 x 5 x 6.3 cm Cyst or mass: There is a 6 x 4 x 6 cm cystic structure on the right ovary corresponding to the CT fin ding. Nonvascular echogenic material is seen internally. The finding is suggestive of a large hemor rhagic cyst or other large follicle. Left: 3 x 2 x 3.8 cm Cyst or mass: There is a 2.1 x 1.8 x 2.1 cm round isoechoic lesion in the left ovary. DOPPLER: Color: Symmetric and uniform flow to both ovaries. CUL-DE-SAC: Free fluid: None. Other: None. IMPRESSION: 1. Normal sonographic appearance of the kidneys. 2. Normal-appearing uterus with endometrial stripe within normal limits. 3. 6 cm right ovarian cyst. This likely reflects a hemorrhagic cyst or other large follicle. 4. 2.1 x 1.8 x 2.1 cm isoechoic left ovarian lesion. Differential consideration include hemorrhagic cyst, endometrioma or dermoid. 5. No evidence of ovarian torsion. 6. A follow-up pelvic ultrasound in 4-6 weeks is recommended for re-evaluation of the ovarian lesions . DATA REPOSITORY:
--- NOTE | 2022-03-13 18:33 | NUR.NOTE ---
Referral to [facility] for 6cm cyst, faxed referral and put in the customer care voice consultant's box for follow up per Dr. Garcia.Nursing Note:
--- NOTE | 2022-03-13 18:47 | DI.VRAD_ITS ---
PROCEDURE INFORMATION: Exam: US Pelvis Complete, Transabdominal and US Pelvis, Transvaginal and US Duplex Artery and Vein, Ovaries, Complete Exam date and time: 03/13/2022 17:46 Age: 26 years old Clinical indication: Abdominal pain; Right lower quadrant; Patient HX: Abd pain, ovarian cyst seen on CT. R/O torsion TECHNIQUE: Imaging protocol: Real-time complete transabdominal and transvaginal pelvic ultrasound with image documentation. Transvaginal imaging was used for better evaluation of the endometrium, adnexa, and/or cervix. Real-time duplex ultrasound scan of the arterial and venous flow of the ovaries with B-mode, color Doppler flow and spectral waveform analysis. COMPARISON: CT RENAL COLIC WO 03/13/2022 16:40 FINDINGS: Uterus: IUD in the endometrium in the expected position. No focal fibroids are seen. Cervix: Normal appearance of the cervix. Right ovary/adnexa: Within the right ovary is a dominant, 59 x 39 x 58 mm cystic structure containing nonvascular echogenic peripheral material. The morphology suggests a very large hemorrhagic or other follicle. Follow-up should be considered given pain is on the right. Normal arterial and venous waveforms in the right ovary. Left ovary/adnexa: Within the left ovary is a homogeneous 21 x 18 x 21 mm rounded lesion. Could be an endometrioma, dermoid or unusual involuting follicle. Follow-up as per institutional protocol. There are tiny surrounding physiologic follicles. Normal arterial and venous waveforms in the left ovary. Intraperitoneal space: No intraperitoneal fluid. Urinary bladder: Normal. Other findings: No right or left hydronephrosis. IMPRESSION: Large right ovarian cystic structure as described above, potential source of pain. No ovarian torsion. IUD in the endometrium in the expected position. Additional findings as above. Dictated and Authenticated by: Deya Ahumada MD. Ordering:VERNA Beasley MD
[2022-03-13 18:49] VITALS: BP 149/95; PULSE 78; TEMP 37.9; O2SAT 99
== END 2022-03-13 18:56 | disposition home or self-care (01) ==
PROVIDERS: Emergency Provider Emergency Medicine; PCP Physician Assistant Medical
DX: N83.291 Other ovarian cyst, right side (principal)
CPT/HCPCS: 36415; 80053; 81025; 83690; 96361; 96374; 96375; 99284; 74176; 76830; 76856; 81003; 85025; J1885; J2405

== ENCOUNTER 2022-08-19 17:50 | Emergency (ER) | payer BC, SELFPAY ==
[2022-08-19 17:54] VITALS: BP 155/97; PULSE 93; RESP 18; TEMP 37; O2SAT 100
--- NOTE | 2022-08-19 18:20 | ED.GENADUL_ITS ---
Discharge Plan Disposition Patient Disposition: Home Condition: Stable Discharge Details Clinical Impression: Peritonsillar cellulitis Primary Care Provider: Chante Cano ED Provider: Anaya Love Home Meds and New Rx's Prescriptions: New clindamycin HCl 150 mg capsule 450 mg PO TID Qty: 90 0RF dexamethasone 4 mg tablet 4 mg PO DAILY Qty: 4 0RF No Action temazepam 15 mg capsule 15 mg PO QHS lidocaine [Lidoderm] 1 PATCH patch 1 patch Topical Q24H Qty: 4 0RF diphenhydramine HCl [Benadryl] 25 mg Capsule 25 mg PO QHS PRN esomeprazole magnesium [Nexium 24HR] 20 mg tablet,delayed release (DR/EC) 20 mg PO DAILY Label Comments: TAKE 1 TABLET BY MOUTH ONCE DAILY acetaminophen [Mapap Extra Strength] 500 MG tablet 1,000 mg PO PRN PRN ibuprofen 600 MG tablet 600 mg PO Q6H PRN (Reason: Pain) Qty: 15 0RF bupropion HCl [Wellbutrin] 100 MG tablet 100 mg PO DAILY Discharge Instructions Instructions: Cellulitis (ED) Additional Instructions: Take steroid daily Take antibiotic daily Yogurt daily while on antibiotic Tylenol and ibuprofen as needed for pain Follow-up with ENT on Saturday or Saturday and return earlier should you have any new or worsening complaints Referrals: Vineet Upton MD [ [facility]] - Chante Cano PA [Primary Care Provider] - Discharge Data Discharge Date/Time-TO BE ENTERED AT DEPARTURE: 08/19/22 18:40 Medical Decision Making This otherwise healthy 27-year-old female presents with report of sore throat and upper respiratory symptoms Patient has erythema on the soft palate, no evidence of abscess, uvula midline Placed on antibiotics and given steroids ENT referral Maintaining secretions, discharged home in stable condition with stable vitals Medical Records Medical records reviewed: Yes I reviewed the patient's medical records. Lab Data Lab results reviewed: Yes I reviewed the patient's lab results. ECG Data Prior ECG tracings: available for review HPI General Date/Time Provider Initiated Documentation: 08/19/22 18:20 . HPI Narrative: This 27-year-old female presents with sore throat and upper respiratory congestion over the course of the past week. Denies fever or chills. Denies nausea or vomiting. Reports cough. Denies any shortness of breath or chest pain. Related Data Home Medications Medication Instructions Recorded Confirmed acetaminophen 500 mg tablet (Mapap 1,000 mg PO PRN PRN 09/26/16 08/19/22 Extra Strength) ibuprofen 600 mg tablet 600 mg PO Q6H PRN Pain #15 tabs 09/26/16 08/19/22 bupropion HCl 100 mg tablet 100 mg PO DAILY 02/09/18 08/19/22 (Wellbutrin) lidocaine 5 % topical patch 1 patch topical Q24H #4 patches 04/27/19 08/19/22 (Lidoderm) temazepam 15 mg capsule 15 mg PO QHS 05/02/21 08/19/22 diphenhydramine HCl 25 mg capsule 25 mg PO QHS PRN 03/13/22 08/19/22 (Benadryl) esomeprazole magnesium 20 mg 20 mg PO DAILY 03/13/22 08/19/22 tablet,delayed release (Nexium 24HR) clindamycin HCl 150 mg capsule 450 mg PO TID #90 caps 08/19/22 dexamethasone 4 mg tablet 4 mg PO DAILY #4 tabs 08/19/22 Previous Rx's Medication Instructions Recorded ibuprofen 600 mg tablet 600 mg PO Q6H PRN Pain #15 tabs 09/26/16 lidocaine 5 % topical patch 1 patch topical Q24H #4 patches 04/27/19 (Lidoderm) clindamycin HCl 150 mg capsule 450 mg PO TID #90 caps 08/19/22 dexamethasone 4 mg tablet 4 mg PO DAILY #4 tabs 08/19/22 Allergies Allergy/AdvReac Type Severity Reaction Status Date / Time No Known Allergies Allergy Unverified 08/19/22 17:59 General Stated Complaint: Sorethroat MILLICENT: 4 Review of Systems All systems reviewed & are unremarkable except as noted in HPI and below PFSH All Active Problems (Updated 08/19/22 @ 18:21 by NUPUR Chandra) Peritonsillar cellulitis (Acute) Contraception (Acute) Nausea & vomiting (Acute) Medical History (Updated 08/19/22 @ 18:21 by NUPUR Chandra) No significant past medical history Surgical History No significant past surgical history Social History (Reviewed 11/18/21 @ 13:25 by HOWARD Veliz Smoking/Tobacco Use Status: Never Smoking risk assessment performed?: Yes Alcohol Intake: former Drug use: Never Substance use type: does not use Do you feel safe at home: Yes Do you feel safe in your relationship?: Yes Exam Const General: cooperative and comfortable HENMT Other: erythema noted to peritonsillar region no evidence of abscess uvula midline No trismus, maintaining secretions Eyes Pupils: PERRL Neck Other: no stridor Resp Effort & Inspection: normal respiratory effort Auscultation: clear to auscultation bilaterally Cardio Rate: regular rate Rhythm: regular rhythm Course Vital Signs Vital signs: Vital Signs Temperature 37.0 C 08/19/22 17:54 Pulse 93 H 08/19/22 17:54 Respiratory Rate 18 08/19/22 17:54 Blood Pressure 155/97 H 08/19/22 17:54 Pulse Oximetry 100 08/19/22 17:54 Temperature 37.0 C 08/19/22 17:54 Temperature Source Temporal Artery Scan 08/19/22 17:54 Pulse 93 H 08/19/22 17:54 Respiratory Rate 18 08/19/22 17:54 Respiratory Effort Non-Labored 08/19/22 17:58 Blood Pressure 155/97 H 08/19/22 17:54 Blood Pressure Position Sitting 08/19/22 17:54 Pulse Oximetry 100 08/19/22 17:54 Oxygen Delivery Method Room Air 08/19/22 17:54 Oxygen Flow Rate 0 08/19/22 17:54 Pain Level 9 08/19/22 17:54 Lab/Test Results Lab/Test Results: 08/19/22 18:03 Tonsil - Not Specified Group A Streptococcus Culture - Pending POC Strep Test-MARLYN(Rapid) Start: 08/19/22 18:11 Freq: .Rapid Strep Test Status: Active Protocol: Document 08/19/22 18:11 AP (Rec: 08/19/22 18:11 AP [id number]) Strep test-MARLYN(Rapid)-POC POC-Strep test-MARLYN (Rapid) Negative POC-Strep test-MARLYN (Rapid) Negative
--- NOTE | 2022-08-19 18:23 | NUR.NOTE ---
Nursing Note: REFERRAL TO ENT/CM FOR PACHECO TONSILAR CELLULITIS.
[2022-08-19] MEDS: Clindamycin 150 MG CAP, 12 CAPS/BTL 450 MG PO (18:30)
[2022-08-19] MEDS: Dexamethasone 10 MG/ML VIAL PO (18:30)
--- NOTE | 2022-08-21 12:29 | PDOC.ERCMACT ---
- If Service Date Differs Date of service: 08/21/22 Time of Service: 12:29 Care Management Activity Note Jayne is seen in the ED for peritonsillar cellulitis. At the request of ED provider, CM coordinates a referral to ENT to assist patient in obtaining an appointment [facility] for further evaluation and treatment.
== END 2022-08-19 18:40 | disposition home or self-care (01) ==
PROVIDERS: Emergency Provider Physician Assistant; PCP Physician Assistant Medical
DX: J36 Peritonsillar abscess (principal)
CPT/HCPCS: 87880; 99283; 87081; 99284; J1100

== ENCOUNTER 2023-07-24 02:46 | Outpatient (CLI) | payer BC, SELFPAY ==
[2023-07-24 08:09] LABS: Abs Immature Grans 0.03 10^3/uL (0.0-0.06); Absolute Basophil Count 0.06 10^3/uL (0.0-0.2); Absolute Eosinophil Count 0.26 10^3/uL (0.0-0.7); Absolute Lymphocyte Count 1.93 10^3/uL (1.2-3.4); Absolute Monocyte Count 0.83 10^3/uL (0.1-0.8); Absolute Neutrophil Count 6.44 10^3/uL (1.2-6.7); Basophils % 0.6; Eosinophils % 2.7; HCT 41.7 % (36.0-46.0); HGB 14.2 g/dL (11.2-15.7); Immature Grans % 0.3; Lymphocytes % 20.2; MCH 30.7 pg (27.0-33.0); MCHC 34.1 % (32.0-36.0); MCV 90 fL (80-95); MPV 8.4 fL (8.0-11.0); Monocytes % 8.7; Neutrophils % 67.5; Platelet Count 355 10^3/uL (130-400); RBC 4.62 10^6/uL (3.93-5.22); RDW 12.3 % (11.7-14.6); RDW-SD 39.8 fL; WBC 9.55 10^3/uL (4.4-10.8)
[2023-07-24 08:54] LABS: ALT 24 U/L (14-59); AST 13 U/L (15-37); Albumin 4.1 g/dL (3.4-5.0); Alkaline Phosphatase 76 U/L (46-116); Anion Gap 9.3 mmol/L (3-11); BUN 13 mg/dL (7-18); Bilirubin, Total 0.4 mg/dL (0.2-1.0); CO2 28.7 mmol/L (21.0-32.0); CREATININE 1.1 mg/dL (0.55-1.02); Calcium 9.3 mg/dL (8.5-10.1); Chloride 103 mmol/L (98-107); Estimated GFR 70.19 (mL/min/1.73m2); FREE T4 1.14 ng/dL (0.76-1.46); Glucose 100 mg/dL (74-106); Potassium 3.8 mmol/L (3.5-5.1); Sodium 141 mmol/L (136-145); TSH 2.54 uIU/mL (0.36-3.74); Total Protein 7.9 g/dL (6.4-8.2)
== END 2023-07-24 02:47 | disposition home or self-care (01) ==
LOC: LBO 02:46
PROVIDERS: PCP Physician Assistant Medical; Visit Provider Physician Assistant Medical
DX: K90.9 Intestinal malabsorption, unspecified (principal)
CPT/HCPCS: 36415; 80053; 84439; 84443; 85025

== ENCOUNTER 2024-02-18 15:08 | Outpatient (REF) | payer BC, SELFPAY ==
--- NOTE | 2024-02-18 13:15 | PAPFT_PTH ---
PATIENT: Jayne Judge LOC: [facility]#:[id number] AGE/SX: 28/F ROOM: RE02/18/[address]: Chante Cano : 1995 BED: DIS: 02/18/2024 SPEC #: [id number] RECD: 02/18/24 18:34 STATUS: PEDRO GERMAN #: [id number] JAYESH: 02/18/24 13:[address]: Chante Cano DEPT: [facility] Cytology RECD BY: Anaya Bacon Tissues: 1 - CX/ENDOCX FOR PAP SMEARS Procedures: PAP THIN PREP/UVM Screening Comments: [id number] (CHLAMYDIA/GC)
[2024-02-19 12:49] LABS: Chlamydia Result Negative (Negative); GC Result Negative (Negative)
== END 2024-02-18 15:09 | disposition home or self-care (01) ==
LOC: NCHCN 15:08
PROVIDERS: PCP Physician Assistant Medical; Visit Provider Physician Assistant Medical
DX: Z01.419 Encounter for gynecological examination (general) (routine) without abnormal findings (principal)
CPT/HCPCS: 87491; 87591; 88142

== ENCOUNTER 2024-02-26 02:26 | Outpatient (CLI) | payer BC, SELFPAY ==
[2024-03-03 12:23] LABS: IgA 219 mg/dL (85-499); Interpretation (See Note); Tissue Transglutaminase IgA <4.0 CU (<20.0)
== END 2024-02-26 02:27 | disposition home or self-care (01) ==
PROVIDERS: PCP Physician Assistant Medical; Visit Provider Physician Assistant Medical
DX: K59.09 Other constipation (principal)
CPT/HCPCS: 36415; 82784; 83516

== ENCOUNTER 2024-06-01 20:12 | Outpatient (REF) | payer BC, SELFPAY | END 2024-06-01 20:13 | disposition home or self-care (01) | LOC: LBN 20:12 | PROVIDERS: PCP Physician Assistant Medical; Visit Provider Nurse Practitioner Family | DX: R82.89 Other abnormal findings on cytological and histological examination of urine (principal) | CPT/HCPCS: 87086 ==

== ENCOUNTER 2024-08-09 19:11 | Emergency (ER) | payer BC, SELFPAY ==
[2024-08-09 19:14] VITALS: BP 159/100; PULSE 120; RESP 16; TEMP 36.5
[2024-08-09 19:27] LABS: Bilirubin Small (Negative); Blood Negative (Negative); Clarity Clear (Clear); Glucose Negative (Negative); Ketones 15 mg/dL (Negative); Leukocyte Esterase Trace (Negative); Nitrite Negative (Negative); Specific Gravity >= 1.030 (1.005-1.025); pH 5.5 (5-8)
--- NOTE | 2024-08-09 19:30 | ED.GENADUL_ITS ---
Discharge Plan Disposition Patient Disposition: Home Condition: Stable Discharge Details Clinical Impression: Suprapubic pain, Urinary urgency Primary Care Provider: Chante Cano ED Provider: Ramos Garcia Home Meds and New Rx's Prescriptions: New phenazopyridine [Pyridium] 200 mg tablet 200 mg PO TID PRN (Reason: pain) Qty: 5 0RF Continued temazepam 15 mg capsule 15 mg PO QHS lidocaine [Lidoderm] 1 PATCH patch 1 patch Topical Q24H Qty: 4 0RF diphenhydramine HCl [Benadryl] 25 mg Capsule 25 mg PO QHS PRN esomeprazole magnesium [Nexium 24HR] 20 mg tablet,delayed release (DR/EC) 20 mg PO DAILY Patient Comments: TAKE 1 TABLET BY MOUTH ONCE DAILY acetaminophen [Mapap Extra Strength] 500 MG tablet 1,000 mg PO PRN PRN ibuprofen 600 MG tablet 600 mg PO Q6H PRN (Reason: Pain) Qty: 15 0RF bupropion HCl [Wellbutrin] 100 MG tablet 100 mg PO DAILY methylphenidate HCl [Concerta] 27 mg tablet extended release 24hr 27 mg PO DAILY Discharge Instructions Additional Instructions: Your urine does not show any signs of infection If symptoms continue follow-up with your primary care provider. If this continues to be an issue that is recurring you may want to see a urologist. If you feel more ill or have new symptoms such as persistent vomiting or high fevers return to the emergency department for reevaluation HPI General Mode of arrival: ambulatory . Date/Time Provider Initiated Documentation: 08/09/24 19:12 . Limitations to Documentation: no limitations . Information obtained by: patient . History of Present Illness 29 year old F presents to the emergency department with the chief complaint of urinary urgency, described as moderate, Quality is described as burning, Patient started experiencing this hour(s) (1) and it has been constant. No relieving factors improve symptom(s), No exacerbating factors reported . Patient notes denies fever/chills. Related Data Home Medications ?Medication ?Instructions ?Recorded ?Confirmed acetaminophen 500 mg tablet (Mapap 1,000 mg PO PRN PRN 09/26/16 08/09/24 Extra Strength) ibuprofen 600 mg tablet 600 mg PO Q6H PRN Pain #15 tabs 09/26/16 08/09/24 bupropion HCl 100 mg tablet 100 mg PO DAILY 06/24/18 12/22/24 (Wellbutrin) lidocaine 5 % topical patch 1 patch topical Q24H #4 patches 04/27/19 08/09/24 (Lidoderm) temazepam 15 mg capsule 15 mg PO QHS 05/02/21 08/09/24 diphenhydramine HCl 25 mg capsule 25 mg PO QHS PRN 03/13/22 08/09/24 (Benadryl) esomeprazole magnesium 20 mg 20 mg PO DAILY 03/13/22 08/09/24 tablet,delayed release (Nexium 24HR) methylphenidate HCl 27 mg 27 mg PO DAILY 08/09/24 08/09/24 tablet,extended release 24 hr (Concerta) phenazopyridine 200 mg tablet 200 mg PO TID PRN pain #5 tabs 08/09/24 (Pyridium) Previous Rx's ?Medication ?Instructions ?Recorded ibuprofen 600 mg tablet 600 mg PO Q6H PRN Pain #15 tabs 09/26/16 lidocaine 5 % topical patch 1 patch topical Q24H #4 patches 04/27/19 (Lidoderm) phenazopyridine 200 mg tablet 200 mg PO TID PRN pain #5 tabs 08/09/24 (Pyridium) Allergies Allergy/AdvReac Type Severity Reaction Status Date / [facility] AdvReac Psychosis Verified 08/09/24 19:22 General Stated Complaint: Urinary MILLICENT: 3 Review of Systems All systems reviewed & are unremarkable except as noted in HPI and below Constitutional Constitutional: Denies chills, Denies fever(s) and Denies weakness ENT Ears, Nose, Mouth, and Throat: Denies change in voice Cardiovascular Cardiovascular: Denies chest pain and Denies dyspnea Respiratory Respiratory: Denies cough and Denies dyspnea Gastrointestinal Gastrointestinal: Denies nausea and Denies vomiting Genitourinary Genitourinary: Reports dysuria Neurologic Neurologic: Denies weakness Exam Const General: no acute distress Orientation: alert [facility] Head: normal to inspection Ears: external ears normal General nose exam: external nose normal Mouth: moist mucous membranes Eyes General: appearance normal, both eyes and all related structures Neck Neck: normal visual inspection Resp Effort & Inspection: normal respiratory effort and able to speak in complete sentences Cardio Rate: regular rate GI Palpation: soft, not firm and no guarding Skin General skin exam: no rashes or lesions noted Neuro General: patient alert and patient oriented x3 Extrem General: normal to inspection Psych Mental Status: mental status grossly normal Course Vital Signs Vital signs: Vital Signs Temperature 36.5 C 08/09/24 19:14 Pulse 120 H 08/09/24 19:14 Respiratory Rate 16 08/09/24 19:14 Blood Pressure 159/100 H 08/09/24 19:14 Temperature 36.5 C 08/09/24 19:14 Temperature Source Temporal Artery Scan 08/09/24 19:14 Pulse 120 H 08/09/24 19:14 Respiratory Rate 16 08/09/24 19:14 Blood Pressure 159/100 H 08/09/24 19:14 Blood Pressure Position Sitting 08/09/24 19:14 Oxygen Delivery Method Room Air 08/09/24 19:14 Oxygen Flow Rate 0 08/09/24 19:14 Pain Level 99 08/09/24 19:14 Lab/Test Results Lab/Test Results: Laboratory Tests Range/Units 08/09/24 19:15 Urine Color (Yellow) Yellow Urine Clarity (Clear) Clear Urine pH (5-8) 5.5 Ur Specific [place] (1.005-1.025) >= 1.030 H Urine Protein (Neg-Trace) mg/dL 30 H Urine Ketones (Negative) mg/dL 15 H Urine Blood (Negative) Negative Urine Nitrite (Negative) Negative Urine Bilirubin (Negative) Small H Urine Urobilinogen (Up to 0.2) mg/dL 1.0 H Ur Leukocyte Esterase (Negative) Trace H Urine Glucose (Negative) mg/dL Negative POC- Test(urine) Negative Medical Decision Making 29-year-old female comes in with 1 to 2 hours of suprapubic discomfort and urinary urgency and burning when she pees. She says she has similar episode in May where she was treated for UTI but her culture came back inconclusive. She denies any fevers, chills, back pain, vomiting. She is well-appearing on exam. Heart rate on my exam is 90. Her abdomen is soft and she has very minimal tenderness in the suprapubic region. No guarding or rebound. Given her well appearance and her symptoms I do not feel blood work is indicated, will check a UA to evaluate for possible cystitis. Patient stable still only has minimal suprapubic tenderness no guarding or rebound do not feel any imaging indicated as I do not suspect surgical pathology such as appendicitis or ovarian torsion. UA unremarkable, she says that this has been happening more often the last few months so advised she could have interstitial cystitis. I will provide Pyridium for symptom relief and she will follow-up with her PCP, return precautions given Differential Diagnosis Differential Diagnosis: Cystitis, interstitial cystitis Quality:SDOH Health Related Social Needs: No Data to Display PFSH All Active Problems (Updated 08/09/24 @ 20:00 by Ramos Garcia MD) Urinary urgency (Acute) Suprapubic pain (Acute) Contraception (Acute) Nausea & vomiting (Acute) Medical History (Updated 08/09/24 @ 20:00 by Ramos Garcia MD) Peritonsillar cellulitis No significant past medical history Surgical History No significant past surgical history Social History Smoking/Tobacco Use Status: Never Smoking risk assessment performed?: Yes Alcohol Intake: former Drug use: Never Substance use type: does not use Do you feel safe at home: Yes Do you feel safe in your relationship?: Yes
[2024-08-09 19:42] LABS: Bacteria Few HPF (Negative); C & S Indicated? No; Crystals Negative HPF (Negative); Epithelial Cells Many HPF (Negative); Mucus Heavy (Negative)
[2024-08-09] MEDS: Phenazopyridine 200 MG TAB PO (20:04)
[2024-08-09 20:19] VITALS: BP 138/80; PULSE 90; RESP 16; O2SAT 99
== END 2024-08-09 20:19 | disposition home or self-care (01) ==
LOC: ER 20:01
PROVIDERS: Emergency Provider Emergency Medicine; PCP Physician Assistant Medical
DX: R35.0 Frequency of micturition (principal); R39.15 Urgency of urination
CPT/HCPCS: 81025; 99283; 81003; 81015

== ENCOUNTER 2024-08-24 15:46 | Outpatient (REF) | payer BC, SELFPAY ==
[2024-08-26 13:18] LABS: Bacterial Vaginosis (BV) Negative (Negative); Candida glabrata Negative (Negative); Candida species group Negative (Negative); Chlamydia Result Negative (Negative); GC Result Negative (Negative); Trichomonas vaginalis Negative (Negative)
== END 2024-08-24 15:47 | disposition home or self-care (01) ==
LOC: NCHCN 15:46
PROVIDERS: PCP Physician Assistant Medical; Visit Provider Physician Assistant Medical
DX: R10.2 Pelvic and perineal pain (principal)
CPT/HCPCS: 81513; 87481; 87491; 87591; 87661

== ENCOUNTER 2024-09-24 10:53 | Outpatient (CLI) | payer BC, SELFPAY ==
--- NOTE | 2024-09-24 10:52 | DI.RAD_ITS ---
Exam(s) XR CHEST 2V PA LATERAL EXAM: XR CHEST 2V PA LATERAL CLINICAL HISTORY: INFLUENZA CAUSED BY INFLUENZA A VIRUS J09.X2 WITH OTHER MANIFESTATIONS TECHNIQUE: 2D digital imaging was performed. Two views. COMPARISON: No exams were available for comparison FINDINGS: HEART: Normal size. Aorta: Not dilated. PULMONARY VASCULATURE: Normal. MEDIASTINUM: Unremarkable. LUNGS: Clear. PLEURAL SPACE: No pleural effusion or pneumothorax. BONE:Unremarkable for age. SOFT TISSUES: Unremarkable. IMPRESSION: No acute abnormality. DATA REPOSITORY: RADIATION DOSE DELIVERED:
== END 2024-09-24 11:13 ==
LOC: DI 10:54
PROVIDERS: PCP Physician Assistant Medical; Visit Provider Physician Assistant Medical
DX: J09.X2 Influenza due to identified novel influenza A virus with other respiratory manifestations (principal)
CPT/HCPCS: 71046

== ENCOUNTER 2025-06-20 11:46 | Emergency (ER) | payer BC, SELFPAY ==
[2025-06-20 11:49] VITALS: BP 134/90; PULSE 99; RESP 14; TEMP 36.9; O2SAT 98
--- NOTE | 2025-06-20 11:56 | W.ED.GENAD ---
Discharge Plan Disposition Patient Disposition: Home Condition: Stable Discharge Details Clinical Impression: Cellulitis of right internal cheek Primary Care Provider: Chante Cano ED Provider: Alban Andino Home Meds and New Rx's Prescriptions: New clindamycin HCl [Cleocin HCl] 150 mg capsule 450 mg PO TID 10 Days Qty: 90 0RF ketorolac 10 mg tablet 10 mg PO QID 5 Days Qty: 20 0RF Rx Instructions: maximum total duration of 5 days from all oral, intranasal, or parenteral formulations Continued temazepam 15 mg capsule 15 mg PO QHS diphenhydramine HCl [Benadryl] 25 mg Capsule 25 mg PO QHS PRN esomeprazole magnesium [Nexium 24HR] 20 mg tablet,delayed release (DR/EC) 20 mg PO DAILY Patient Comments: TAKE 1 TABLET BY MOUTH ONCE DAILY acetaminophen [Mapap Extra Strength] 500 MG tablet 1,000 mg PO PRN PRN ibuprofen 600 MG tablet 600 mg PO Q6H PRN (Reason: Pain) Qty: 15 0RF bupropion HCl [Wellbutrin] 100 MG tablet 100 mg PO DAILY methylphenidate HCl [Concerta] 27 mg tablet extended release 24hr 27 mg PO DAILY Discharge Instructions Instructions: Clindamycin (Systemic), Cellulitis (Skin Infection), Adult ED Additional Instructions: You were seen in the emergency department for the right internal cheek swelling likely mild infection in the relation to your recent dental infection, there is no abscess seen did not drain, I am prescribing you an antibiotic called clindamycin, take this as directed. Take Tylenol and ibuprofen as needed for pain, perform gargles with warm salt water 3 times per day, return for any severe increase in your jaw pain or vocal changes or inability to open or close your jaw or worsening fever with facial swelling and redness. Stand Alone Forms: Work Release Referrals: Chante Cano PA [Primary Care Provider, Medicine] Discharge Data Discharge Date/Time-TO BE ENTERED AT DEPARTURE: 06/20/25 14:59 HPI General Date/Time Provider Initiated Documentation: 06/20/25 11:56. HPI Narrative: 30 year-old female presents to ED today by POV/ambulating with a chief complaint of right inner cheek swelling after having 2 teeth pulled 2 weeks ago, increasing pain over the past couple days. Quality described as swelling to the inner right cheek, denies pain in the gums, no radiation to trismus, vocal changes, dysphagia, inability to eat, fever, neck swelling, patient does endorse pain at maximal jaw opening. Severity is described as moderate. Palliating factors include Tylenol and ibuprofen without relief. Provoking factors include nothing specific. Events leading up to the incident/Associated Symptoms: Patient has been performing salt water gargles. Patient not anticoagulated. Related Data Home Medications Medication Instructions Recorded Confirmed acetaminophen 500 mg tablet (Mapap 1,000 mg PO PRN PRN 09/26/16 06/20/25 Extra Strength) ibuprofen 600 mg tablet 600 mg PO Q6H PRN Pain #15 tabs 09/26/16 06/20/25 bupropion HCl 100 mg tablet 100 mg PO DAILY 02/09/18 06/20/25 (Wellbutrin) temazepam 15 mg capsule 15 mg PO QHS 05/02/21 06/20/25 diphenhydramine HCl 25 mg capsule 25 mg PO QHS PRN 03/13/22 06/20/25 (Benadryl) esomeprazole magnesium 20 mg 20 mg PO DAILY 03/13/22 06/20/25 tablet,delayed release (Nexium 24HR) methylphenidate HCl 27 mg 27 mg PO DAILY 08/09/24 06/20/25 tablet,extended release 24 hr (Concerta) clindamycin HCl 150 mg capsule 450 mg (3 x 150 mg) PO TID 10 days 06/20/25 (Cleocin HCl) #90 caps ketorolac 10 mg tablet 10 mg PO QID 5 days #20 tabs 06/20/25 Previous Rx's Medication Instructions Recorded ibuprofen 600 mg tablet 600 mg PO Q6H PRN Pain #15 tabs 09/26/16 clindamycin HCl 150 mg capsule 450 mg (3 x 150 mg) PO TID 10 days 06/20/25 (Cleocin HCl) #90 caps ketorolac 10 mg tablet 10 mg PO QID 5 days #20 tabs 06/20/25 Allergies Allergy/AdvReac Type Severity Reaction Status Date / Time fluoxetine (From Prozac) AdvReac Psychosis Verified 06/20/25 11:51 General Stated Complaint: DentalOral MILLICENT: 3 Review of Systems All systems reviewed & are unremarkable except as noted in HPI and below Exam Narrative Exam Narrative: GENERAL APPEARANCE: Well-nourished, non-toxic, awake and alert, atraumatic, no acute distress. SKIN: Warm, pink, dry, intact, without rashes/lesions/ulcerations. HEAD: Normocephalic, atraumatic, normal hair distribution for gender/age. EYES: Normal conjunctiva, no exudates on lids/lashes. ENT: Nares patent, no circumoral cyanosis, no facial swelling, swelling to the right inner buccal surface without fluctuant palpable swelling, no drainage pus seen, no gingival abscess seen, uvula midline, no tonsillar swelling or exudate, no trismus, no vocal changes NECK: Supple, trachea midline, painless cervical ROM. LUNGS/CHEST: Non-labored respirations, normal A/P diameter, symmetrical expansion, no chest wall deformity HEART (CV/PV): No peripheral edema, no JVD. ABDOMEN: Soft, non-distended, no guarding. MSK: Normal ROM, no swelling/deformity to bilateral UEs or LEs, moving all extremities without weakness, no cyanosis, spine midline without tenderness, normal curvature. NEURO: Mental Status AAOx4 - alert to person, place, time, events No facial droop, no forehead involvement. Motor: No focal weakness - strength 5/5 in bilateral UEs and LEs, proximal and distal, symmetric. Sensory: sensation intact to light touch globally. Gait normal: patient ambulated without ataxia into ED room. PSYCH: euthymic, cooperative, pleasant, appropriate speech Course Vital Signs Vital signs: Vital Signs Temperature 36.9 C 06/20/25 11:49 Pulse 99 H 06/20/25 11:49 Respiratory Rate 14 06/20/25 11:49 Blood Pressure 134/90 06/20/25 11:49 Pulse Oximetry 98 06/20/25 11:49 Temperature 36.9 C 06/20/25 11:49 Temperature Source Oral 06/20/25 11:49 Pulse 99 H 06/20/25 11:49 Respiratory Rate 14 06/20/25 11:49 Blood Pressure 134/90 06/20/25 11:49 Blood Pressure Position Sitting 06/20/25 11:49 Pulse Oximetry 98 06/20/25 11:49 Oxygen Delivery Method Room Air 06/20/25 11:49 Oxygen Flow Rate 0 06/20/25 11:49 Medical Decision Making This dictation utilizes [id number] dictation software and may contain unedited grammatical errors. 30 year-old female presents to ED today by POV/ambulating with a chief complaint of right inner cheek swelling after having 2 teeth pulled 2 weeks ago, increasing pain over the past couple days. Quality described as swelling to the inner right cheek, denies pain in the gums, no radiation to trismus, vocal changes, dysphagia, inability to eat, fever, neck swelling, patient does endorse pain at maximal jaw opening. Severity is described as moderate. Palliating factors include Tylenol and ibuprofen without relief. Provoking factors include nothing specific. Events leading up to the incident/Associated Symptoms: Patient has been performing salt water gargles. Patients' medical history: History of peritonsillar cellulitis. Family and social history: Noncontributory. Pertinent exam findings / vital signs include swelling to the right inner buccal surface without fluctuant palpable swelling, no drainage pus seen, no gingival abscess seen, uvula midline, no tonsillar swelling or exudate, no trismus, no vocal changes, nontoxic and afebrile. Differential / pathologies of concern include buccal abscess, cellulitis. Diagnostic studies of: - CBC, CMP, CT facial with contrast. - CBC shows no leukocytosis - CMP unremarkable - CT facial study shows no abscess Interventions of: - 1 g IV Tylenol, Rx for clindamycin. ED Course/Assessment/Plan: 30-year-old female presents with right cheek pain without external facial erythema, has right inner cheek buccal swelling without fluctuant palpable abscess, no visible drainage, uvula midline, no tonsillar swelling and no trismus or vocal changes, counseled on likely early cellulitis and needs to take clindamycin continue salt water gargles take Tylenol and ibuprofen as needed follow-up with her dentist or primary care provider with strict return criteria for any vocal changes or ability to open or close her jaw. Findings not consistent with deep space infection, abscess. Disposition of cellulitis of right internal cheek. Patient verbalized understanding of the plan and return to ED criteria and engaged in shared decision making. Medical Records Medical records reviewed: Yes I reviewed the patient's medical records. Imaging Data Radiologic Study: Attestation: I personally reviewed and interpreted this imaging study as follows: Imaging: CT Scan Radiologist's impression: Exam: CT Maxillofacial With Contrast Exam date and time: 06/20/2025 12:39 PM Age: 30 years old Clinical indication: Pain; Other: R cheek abscess? Recent RT sided dental extraction; Prior surgery; Surgery date: 3-7 days post-operative; Surgery type: Recent RT sided dental work TECHNIQUE: Imaging protocol: Computed tomography of the face with contrast. Contrast material: OMNIPAQUE 350; Contrast volume: 100 ml; Contrast route: INTRAVENOUS (IV); COMPARISON: No relevant prior studies available. FINDINGS: Paranasal sinuses: No air-fluid levels. Orbital cavities: Orbits are normal. Globes are unremarkable. Teeth: Previous extraction anterior most right maxillary bicuspid (#5). Bones: No acute fracture. Soft tissues: Unremarkable. No abscess or cellulitis. IMPRESSION: No acute findings. Dictated and Authenticated by: Valeriano Tripp MD. Lab Data Lab results reviewed: Yes I reviewed the patient's lab results. Labs: Laboratory Tests Range/Units 06/20/25 12:14 WBC (4.4-10.8) 10^3/uL 5.71 RBC (3.93-5.22) 10^6/uL 4.57 Hgb (11.2-15.7) g/dL 14.1 Hct (36.0-46.0) % 41.0 MCV (80-95) fL 90 MCH (27.0-33.0) pg 30.9 MCHC (32.0-36.0) % 34.4 RDW (11.7-14.6) % 12.0 Plt Count (130-400) 10^3/uL 353 MPV (8.0-11.0) fL 8.5 Immature Gran % % 0.2 Neutrophils % % 57.1 Lymphocytes % % 29.9 Monocytes % % 8.9 Eosinophils % % 3.0 Basophils % % 0.9 Nucleated RBC % (0.0-0.3) % 0.0 Absolute Neutrophils (1.2-6.7) 10^3/uL 3.26 Absolute Lymphocytes (1.2-3.4) 10^3/uL 1.71 Absolute Monocytes (0.1-0.8) 10^3/uL 0.51 Absolute Eosinophils (0.0-0.7) 10^3/uL 0.17 Absolute Basophils (0.0-0.2) 10^3/uL 0.05 Sodium (136-145) mmol/L 141 Potassium (3.5-5.1) mmol/L 3.7 Chloride (98-107) mmol/L 104 Carbon Dioxide (21.0-32.0) mmol/L 27.2 Anion Gap (3-11) mmol/L 9.8 BUN (7-18) mg/dL 8 Creatinine (0.55-1.02) mg/dL 0.9 Est GFR (CKD-EPI 2020) (mL/min/1.73m2) 88.20 Glucose (74-106) mg/dL 81 Calcium (8.5-10.1) mg/dL 9.1 Total Bilirubin (0.2-1.0) mg/dL 0.3 AST (15-37) U/L 11 L ALT (14-59) U/L 22 Alkaline Phosphatase (46-116) U/L 78 Total Protein (6.4-8.2) g/dL 7.7 Albumin (3.4-5.0) g/dL 4.0 PFSH All Active Problems (Updated 06/20/25 @ 14:47 by NUPUR Antoine) Cellulitis of right internal cheek (Acute) Contraception (Acute) Nausea & vomiting (Acute) Medical History (Updated 06/20/25 @ 14:47 by NUPUR Antoine) Peritonsillar cellulitis No significant past medical history Surgical History No significant past surgical history Social History Smoking/Tobacco Use Status: Never Smoking risk assessment performed?: Yes Alcohol Intake: former Drug use: Never Substance use type: does not use Do you feel safe at home: Yes Do you feel safe in your relationship?: Yes
--- NOTE | 2025-06-20 12:00 | DI.CT_ITS ---
Exam(s) CT FACIAL W EXAM: CT FACIAL W CLINICAL HISTORY: R cheek abscess?. TECHNIQUE: Imaging Protocol: Axial computed tomography images with coronal and sagittal reformatted images were created and reviewed. No IV contrast COMPARISON: No exams were available for comparison FINDINGS: MAXILLOFACIAL CT SCAN: Bones: There is no evidence of facial fractures nor orbital blowout fracture. Paranasal sinuses: No significant mucosal thickening nor fluid levels. Orbits: No significant finding Teeth: Previous extraction right maxillary bicuspid. No evidence of abscess. Soft tissues: No abnormal fluid collection and no evidence of cellulitis. No foreign bodies. IMPRESSION: No significant findings Preliminary [facility] report was reviewed RADIATION DOSE DELIVERED: 483.12mGy.cm Total DLP DATA REPOSITORY: All CT scans at this facility are submitted to the National Radiology Data Registry (NRDR) Dose Index Registry (DIR) with the [employer] (A[employer]). RADIATION OPTIMIZATION: All CT scans at this facility use at least one of these dose optimization techniques: automated exposure control; mA and/or kV adjustment per patient size (includes targeted exams where dose is matched to clinical indication); or iterative reconstruction.
[2025-06-20 12:24] LABS: Abs Immature Grans 0.01 10^3/uL (0.0-0.06); HCT 41.0 % (36.0-46.0); HGB 14.1 g/dL (11.2-15.7); Immature Grans % 0.2 %; MCH 30.9 pg (27.0-33.0); MCHC 34.4 % (32.0-36.0); MCV 90 fL (80-95); MPV 8.5 fL (8.0-11.0); Platelet Count 353 10^3/uL (130-400); RBC 4.57 10^6/uL (3.93-5.22); RDW 12.0 % (11.7-14.6); RDW-SD 39.0 fL; WBC 5.71 10^3/uL (4.4-10.8)
[2025-06-20] MEDS: Normal Saline Flush 10 ML SYR IVP (12:40)
[2025-06-20] MEDS: Normal Saline - Diluent 50 ML VIAL IJ (12:40)
[2025-06-20] MEDS: Omnipaque 350 MG/ML 100 ML BTL IJ (12:40)
[2025-06-20 13:01] LABS: ALT 22 U/L (14-59); AST 11 U/L (15-37); Albumin 4.0 g/dL (3.4-5.0); Alkaline Phosphatase 78 U/L (46-116); Anion Gap 9.8 mmol/L (3-11); BUN 8 mg/dL (7-18); Bilirubin, Total 0.3 mg/dL (0.2-1.0); CO2 27.2 mmol/L (21.0-32.0); Calcium 9.1 mg/dL (8.5-10.1); Chloride 104 mmol/L (98-107); Glucose 81 mg/dL (74-106); Potassium 3.7 mmol/L (3.5-5.1); Sodium 141 mmol/L (136-145); Total Protein 7.7 g/dL (6.4-8.2)
[2025-06-20] MEDS: ACETAMINOPHEN 1,000 MG/100 ML BAG 400 MG (13:24)
--- NOTE | 2025-06-20 14:20 | DI.VRAD_ITS ---
PROCEDURE INFORMATION: Exam: CT Maxillofacial With Contrast Exam date and time: 06/20/2025 12:39 PM Age: 30 years old Clinical indication: Pain; Other: R cheek abscess? Recent RT sided dental extraction; Prior surgery; Surgery date: 3-7 days post-operative; Surgery type: Recent RT sided dental work TECHNIQUE: Imaging protocol: Computed tomography of the face with contrast. Contrast material: OMNIPAQUE 350; Contrast volume: 100 ml; Contrast route: INTRAVENOUS (IV); COMPARISON: No relevant prior studies available. FINDINGS: Paranasal sinuses: No air-fluid levels. Orbital cavities: Orbits are normal. Globes are unremarkable. Teeth: Previous extraction anterior most right maxillary bicuspid (#5). Bones: No acute fracture. Soft tissues: Unremarkable. No abscess or cellulitis. IMPRESSION: No acute findings. Dictated and Authenticated by: Valeriano Tripp MD. Orderin Sina Phoenix MD
[2025-06-20 14:58] VITALS: BP 128/82; PULSE 80; RESP 16; O2SAT 98
== END 2025-06-20 14:59 | disposition home or self-care (01) ==
PROVIDERS: Emergency Provider Physician Assistant; PCP Physician Assistant Medical
DX: K12.2 Cellulitis and abscess of mouth (principal); R68.84 Jaw pain
CPT/HCPCS: 99284; 99283; 81025; 36415; 80053; 70487; 85025; J0131; J3490

== ENCOUNTER 2025-08-11 08:53 | Day surgery (SDC) | payer BC, SELFPAY ==
[2025-08-11 09:13] VITALS: BP 103/100; PULSE 115; RESP 18; TEMP 36.5; O2SAT 96
[2025-08-11] MEDS: Lactated Ringers 1,000 ML 80 ML IV (09:19)
--- NOTE | 2025-08-11 09:23 | W.ANESPRE ---
General Info Date of Service Date Performed: 08/11/25 Height: 5 ft 9.5 in Weight: 79.2 kg Body Mass Index (BMI): 25.4 Surgical Procedure: Operation Date: 08/11/25 10:05 Proposed Procedure Side Surgeon p Colonoscopy/Gastroscopy Nati Gómez MD Meds Allergies and Home Medications Allergies Allergy/AdvReac Type Severity Reaction Status Date / Time fluoxetine (From Prozac) AdvReac Psychosis Verified 08/11/25 09:11 Home Medication ?Medication ?Instructions ?Recorded acetaminophen 500 mg tablet (Mapap 1,000 mg PO PRN PRN 09/26/16 Extra Strength) ibuprofen 600 mg tablet 600 mg PO Q6H PRN Pain #15 tabs 09/26/16 bupropion HCl 100 mg tablet 100 mg PO DAILY 02/09/18 (Wellbutrin) diphenhydramine HCl 25 mg capsule 25 mg PO QHS PRN 03/13/22 (Benadryl) esomeprazole magnesium 20 mg 20 mg PO DAILY 03/13/22 tablet,delayed release (Nexium 24HR) methylphenidate HCl 27 mg 27 mg PO DAILY 08/09/24 tablet,extended release 24 hr (Concerta) bisacodyl 5 mg tablet,delayed 5 mg PO ONCE Colonoscopy Bowel 07/26/25 release Prep #8 tabs polyethylene glycol 3350 17 238 g PO ONCE #238 grams 07/26/25 gram/dose oral powder temazepam 15 mg capsule 30 mg PO QHS 07/26/25 Current Visit Medications: Current Medications Generic Name Dose Route Start Last Admin Trade Name Freq PRN Reason Stop Dose Admin Ringer's Solution 1,000 mls @ 80 mls/hr 08/11/25 06:00 08/11/25 09:19 IV 08/11/25 23:59 80 mls/hr INFUSION RAMILA Administration Sodium Chloride 0 ml 08/11/25 06:00 Normal Saline Flush 10 Ml Syr IV 08/11/25 23:59 PRN PRN Sodium Chloride 0 ml 08/11/25 06:00 Normal Saline 10 Ml Vial IJ 08/11/25 23:59 DIRECTED PRN Sterile Water 0 ml 08/11/25 06:00 Water,Injection,Sterile 10 Ml Vial IJ 08/11/25 23:59 DIRECTED PRN PFSH Active Problems Active Problems: Problem Status Onset Code GERD (gastroesophageal reflux disease) Chronic K21.9 Constipation Acute K59.00 Contraception Acute Z30.9 Nausea & vomiting Acute R11.2 Medical History Medical History Peritonsillar cellulitis No significant past medical history Surgical History Surgical History No significant past surgical history Tobacco Smoking/Tobacco Use Status: Never Alcohol Alcohol Intake: current Alcohol intake frequency: holidays/special occasions only Substance Use Substance use: Never Substance use type: does not use Vital Signs and Lab Results Vital Signs Most Recent Vital Signs in EMR: Most Recent Vital Signs Temp Pulse Resp BP Pulse Ox 36.5 C 115 H 18 103/100 H 96 08/11/25 09:13 08/11/25 09:13 08/11/25 09:13 08/11/25 09:13 08/11/25 09:13 Point of Care Results Point of Care Results: POC- Test(urine) Negative 08/11/25 09:18 Anesthesia Assessment and Plan Anesthesia History Personal History: No History of Anesthesia Complications Family History: Other Exercise Tolerance Exercise Tolerance: Metabolic Equivalents>4 Cardiac & Pulmonary Exam Cardiac Exam: Normal S1/S2 Heart Sounds Pulmonary Exam: Clear Bilateral Breath Sounds Implantable Cardiac Device Does patient have a Pacemaker or an ICD?: No Airway Exam Known Difficult Airway: No Mallampati Class: 2 Mouth Opening: Normal (> 3cm) Thyromental Distance: Greater than 3 cm Neck Range of Motion: Full ROM Neck Circumference: Normal Teeth Condition: Normal Dentition Airway Comments: Couple missing teeth ASA Classification ASA Score: ASA 2 Emergency Case?: No NPO Status NPO Status: NPO Clears >2 hours, Solids >8 hours Status Status: Negative HCG Anesthesia Plan Resuscitation Status: Full Code Anesthesia Technique: General Anesthesia Airway Planned: Natural Airway Monitors Used: Standard Monitors Preoperative Comments:: Patient reports high anxiety associated with procedure, plan for preoperative medication
[2025-08-11 09:27] VITALS: BMI 25.4
--- NOTE | 2025-08-11 09:48 | BOWEL_PTH ---
PATIENT: Jayne Judge LOC: [facility] U#:[id number] AGE/SX: 30/F ROOM: RE08/11/[address]: Nati Gómez : 1995 BED: DIS: 08/11/2025 SPEC #: [id number] RECD: 08/11/25 12:41 STATUS: PEDRO RE #: [id number] JAYESH: 08/11/25 09:[address]: Nati Gómez DEPT: Surgical Specimen RECD BY: Anaya Bacon ENTERED: 08/11/25 12:43 SP TYPE: Bowel OTHR DR: Chante Cano Tissues: 1 - BIOPSY BOWEL 2 - STOMACH BIOPSY 3 - ESOPHAGUS BIOPSY 4 - BIOPSY BOWEL 5 - BIOPSY BOWEL Procedures: GROSS AND MICRO LEVEL 4 Comments: [id number]
--- NOTE | 2025-08-11 10:19 | W.PM.DSUDISC ---
Date of service: 08/11/25 Discharge Plan Disposition Patient Disposition: Home Condition: Good Discharge Details Reason For Visit: Constipation, GERD Attending Provider: Nati Gómez Primary Care Provider: Chante Cano Recommendations for Follow Up Recommended tests to be ordered by follow up provider: Follow up pathology Home Meds and New Rx's Prescriptions: Continued temazepam 15 mg capsule 30 mg PO QHS diphenhydramine HCl [Benadryl] 25 mg Capsule 25 mg PO QHS PRN esomeprazole magnesium [Nexium 24HR] 20 mg tablet,delayed release (DR/EC) 20 mg PO DAILY Patient Comments: TAKE 1 TABLET BY MOUTH ONCE DAILY acetaminophen [Mapap Extra Strength] 500 MG tablet 1,000 mg PO PRN PRN ibuprofen 600 MG tablet 600 mg PO Q6H PRN (Reason: Pain) Qty: 15 0RF bupropion HCl [Wellbutrin] 100 MG tablet 100 mg PO DAILY methylphenidate HCl [Concerta] 27 mg tablet extended release 24hr 27 mg PO DAILY Discontinued bisacodyl 5 mg tablet,delayed release (DR/EC) 5 mg PO ONCE Qty: 8 0RF Rx Instructions: Per Colonoscopy bowel prep instructions polyethylene glycol 3350 17 gram/dose powder 238 g PO ONCE Qty: 238 0RF Rx Instructions: For Colonoscopy bowel prep, as directed by office Discharge Instructions Additional Instructions: Your procedures went well today. The upper endoscopy was normal as well as the colonoscopy. Some routine biopsies were performed during the procedure. We will contact you once these results return. If you have any questions or concerns please contact the general surgery office. 1. If tolerated, consume a soft, low fiber diet for 1-2 days. 2. Do not drive, drink alcohol, operate machinery, make critical decisions, or do activities that require coordination or balance for 24 hours. 3. Because air was put into your colon during the procedure, expelling air from your rectum (passing gas or farting) is normal. 4. You may not have a bowel movement for 1-3 days because of the colonoscopy prep. This is normal. 5. Go directly to the emergency room if you notice any of the following: Develop chills (warm to touch), or if you have a thermometer and your temperature is above 101 Difficulty breathing or difficultly swallowing Persistent vomiting Severe abdominal pain, other than gas cramps Severe chest pain Black, tarry stools Any bleeding ? exceeding one tablespoon 6. Call your physician if the site where your intravenous was started becomes red, swollen, painful, and warm to touch. 7. Your physician has reviewed your pre-procedure medications. Please continue to take those medications as previously ordered. You will be given specific information/education regarding any changes to your medications before leaving. Stand Alone Forms: Portal Information Activity:: Activity as Tolerated Diet:: As Tolerated Discharge Orders Discharge Orders: Discharge Order (Routine); Ordered 08/11/25 Ordered By: Nati Gómez
[2025-08-11 10:20] VITALS: BP 119/81; PULSE 97; RESP 18; TEMP 36.5; O2SAT 98
--- NOTE | 2025-08-11 10:21 | W.PM.ENDDOP ---
Date of service: 08/11/25 Time of Service: 10:21 Endoscopy Report DATE OF PROCEDURE: 08/11/25 PRE-OP DIAGNOSIS: GERD POST-OP DIAGNOSIS: same PROCEDURE: Upper endoscopy with biopsy SURGEON: Nati Gómez ANESTHESIA TYPE: General:No Airway ESTIMATED BLOOD LOSS: 1 PATHOLOGY: other (Duodenum, antrum, GE junction biopsy ) COMPLICATIONS: None DISPOSITION: PACU INDICATIONS: Patient is a 30-year-old female who presented to the surgery clinic for evaluation of constipation and reflux. A upper endoscopy and colonoscopy was discussed with her. Consent was obtained prior to the procedure. FINDINGS: Normal upper endoscopy. Cold forcep biopsy of the duodenum, antrum and GE junction performed. PROCEDURE DESCRIPTION: After adequate sedation, the upper endoscope was inserted and advanced in the duodenum under direct visualization. The scope was withdrawn and the mucosa inspected. The duodenum appeared normal and a cold forcep biopsy was performed. The stomach was normal with no evidence of ulcerations or erosions. ?The antrum area was biopsied and also checked for H. pylori.? Retroflexion view in the stomach was normal. At the lower esophagus Z line area, this was inspected and noted to be normal. A cold forcep biopsy of the GE junction was performed. No evidence of العراقي?s esophagus or strictures. Otherwise, the esophagus was normal. The scope was completely withdrawn from the patient. The patient tolerated the procedure well with no immediate complications.
--- NOTE | 2025-08-11 10:24 | COLE_ITS ---
Date of service: 08/11/25 Time of Service: Colonoscopy Report Date of procedure: 08/11/25 Pre-op diagnosis general: Constipation Post-op diagnosis procedure note: same Procedure: Colonoscopy with biopsy Surgeon: Nati Gómez Anesthesia Type: General:No Airway Estimated blood loss (mL): 1 Pathology: other (Cold forcep biopsy of ascending and descending colon) Complications: None Disposition: PACU Indications: Patient is a 30-year-old female who presented to the surgery clinic for evaluation of constipation and reflux. A upper endoscopy and colonoscopy was discussed with her. Consent was obtained prior to the procedure. Prep: Miralax/Dulcolax Procedure Start Time: 09:47 Procedure End Time: :09 Retraction Time: 8 Findings: Normal colonoscopy. Cold forcep biopsy of ascending and descending colon performed. Procedure Description: Informed consent was obtained. The patient was taken to the endoscopy suite and placed in the left lateral decubitus position. After adequate intravenous sedation, digital rectal exam was performed, which was normal. A colonoscope was inserted into the rectum and easily negotiated to the cecum. The ileocecal valve and appendiceal orifice were identified. The entire colonic mucosa was then carefully circumferentially inspected upon slow withdrawal of the scope. The colon all appeared normal. Cold forcep biopsy of the ascending colon and descending colon were performed and sent to pathology. Retroflexion in the rectum was unremarkable. The patient tolerated the procedure well with no complications. Postoperatively, the patient was transferred to the recovery room in stable condition. [place] Bowel Prep [place] Bowel Prep Right Colon: 3 Left Colon: 3 Transverse Colon: 3 Total Score: 9
[2025-08-11 11:00] VITALS: BP 133/96; PULSE 75; RESP 16; TEMP 36.2; O2SAT 100
--- NOTE | 2025-08-11 11:39 | W.ANESPOSTOP ---
Postoperative Evaluation Date, Time and Location Date Performed: 08/11/25 Time Performed: 11:00 Patient Location: Day Surgery Unit Vital Signs Most Recent Imported Vital Signs: Most Recent Vital Signs Temp Pulse Resp BP Pulse Ox 36.2 C L 75 16 133/96 H 100 08/11/25 11:00 08/11/25 11:00 08/11/25 11:00 08/11/25 11:00 08/11/25 11:00 Pain Score Most Recent Pain Score: Most Recent Pain Score Pain Level 0 08/11/25 11:00 Assessment Mental Status: Awake (Alert & Oriented to Patient Baseline) Airway and Respiratory Function: Patent airway with normal (patient baseline) respiratory exam Cardiovascular Function: Hemodynamically Stable Hydration Status: Adequately Hydrated Nausea & Vomiting: No Nausea or Vomiting Pain: Pt. Denies Any Pain Peripheral Nerve Block: Patient did not receive a nerve block
== END 2025-08-11 11:11 | disposition home or self-care (01) ==
PROVIDERS: PCP Physician Assistant Medical; Visit Provider Student in an Organized Health Care Education/Training Program
PROC: (CPT 45380; principal; 2025-08-11 10:00)
DX: K21.9 Gastro-esophageal reflux disease without esophagitis (principal); K59.00 Constipation, unspecified; K31.A19 Gastric intestinal metaplasia without dysplasia, unspecified site
CPT/HCPCS: 45380; 43239; 88305; J2003; J2250; J2405; J2704